=== PATIENT | female | born 1940 | race Caucasian/White ===

== ENCOUNTER 2016-07-28 17:18 | Emergency (ER) | payer MEDICARE ==
--- NOTE | 2016-07-28 18:36 | ED ---
General Adult HPI - General Chief complaint: Weakness Stated complaint: afib Time Seen by Provider: 07/28/16 18:36 Source: patient, RN notes reviewed, old records reviewed Mode of arrival: ambulatory Limitations: no limitations - History of Present Illness Initial comments: This is a 75-year-old female for multiple nonspecific symptoms, revolver no weakness. Patient has no specific heart disease she has suffered from A. fib is on anticoagulation. Patient hasno neurological complaints she has complete of exertional shortness of breath and episodes were heart is fluttering or chest flipping over and she feels very fatigued short of breath and weak. The symptoms are 5-6 weeks now no fevers or travel she also cannot sick contacts no medication changes. Patient at this time is asymptomatic she did feel weak earlier today after she woke up and do some chores - Related Data Home Medications Medication Instructions Recorded Confirmed Multivitamins, Thera [Multivitamin] 1 tab PO DAILY 10/09/15 07/28/16 [place]-3 Fatty Acids/Fish Oil [Fish 1 cap PO DAILY 10/09/15 07/28/16 Oil 1,000 mg Softgel] Selenium 100 mcg PO DAILY 10/09/15 07/28/16 Cholecalciferol [Vitamin D3] 1,000 unit PO DAILY 07/28/16 07/28/16 Diltiazem HCl 60 mg PO TID@0300,0900,1500 07/28/16 07/28/16 Edoxaban Tosylate [Savaysa] 60 mg PO DAILY@1500 07/28/16 07/28/16 Potassium 99 mg PO DAILY 07/28/16 07/28/16 Allergies Allergy/AdvReac Type Severity Reaction Status Date / Time No Known Allergies Allergy Verified 07/28/16 18:58 Review of Systems ROS Statement: Those systems with pertinent positive or pertinent negative responses have been documented in the HPI. ROS Other: All systems not noted in ROS Statement are negative. Past Medical History Past Medical History: Atrial Fibrillation, Hypertension Additional Past Medical History / Comment(s): Pt states she had rapid heart beat yrs ago and has had several tests run but never found out what it was. She also had anemia in the past. History of Any Multi-Drug Resistant Organisms: None Reported Past Surgical History: Heart Catheterization Additional Past Surgical History / Comment(s): Cardiac cath yrs ago-normal, uterine polypectomies-benign, colonoscopy-normal. Past Anesthesia/Blood Transfusion Reactions: No Reported Reaction Additional Past Anesthesia/Blood Transfusion Reaction / Comment(s): Pt has received blood in past without reaction. Past Psychological History: No Psychological Hx Reported Additional Psychological History / Comment(s): Pt resides with her spouse. She is independent. She uses no assistive device. She drives. Smoking Status: Never smoker Past Alcohol Use History: None Reported Past Drug Use History: None Reported - Past Family History Father Family Medical History: Myocardial Infarction ([place]) Additional Family Medical History / Comment(s): Father of a [place] at age 86yrs. Mother Family Medical History: Cancer Additional Family Medical History / Comment(s): Mother had uterine cancer with surgery. She at age 89yrs. General Exam Limitations: no limitations General appearance: alert, in no apparent distress Head exam: Present: atraumatic, normocephalic, normal inspection Eye exam: Present: normal appearance, PERRL, EOMI. Absent: scleral icterus, conjunctival injection, periorbital swelling ENT exam: Present: normal exam, mucous membranes moist Neck exam: Present: normal inspection. Absent: tenderness, meningismus, lymphadenopathy Respiratory exam: Present: normal lung sounds bilaterally. Absent: respiratory distress, wheezes, rales, rhonchi, stridor Cardiovascular Exam: Present: regular rate, normal rhythm, normal heart sounds. Absent: systolic murmur, diastolic murmur, rubs, gallop, clicks GI/Abdominal exam: Present: soft, normal bowel sounds. Absent: distended, tenderness, guarding, rebound, rigid Extremities exam: Present: normal inspection, full ROM, normal capillary refill. Absent: tenderness, pedal edema, joint swelling, calf tenderness Back exam: Present: normal inspection Neurological exam: Present: alert, oriented X3, CN II-XII intact Psychiatric exam: Present: normal affect, normal mood Skin exam: Present: warm, dry, intact, normal color. Absent: rash Course Vital Signs 07/28/16 07/28/16 07/28/16 18:16 19:00 19:33 Temperature 98.2 F 98.1 F Pulse Rate 94 81 82 Respiratory 20 20 18 Rate Blood Pressure 142/78 123/69 132/77 O2 Sat by Pulse 96 95 98 Oximetry 07/28/16 20:21 Temperature Pulse Rate 81 Respiratory 18 Rate Blood Pressure 173/86 O2 Sat by Pulse 98 Oximetry - Reevaluation(s) Reevaluation #1: 07/28/16 20:48 She has no complaints EKG Findings - EKG Comments: EKG Findings:: EKG shows normal sinus rhythm rate of 83, [place] 180, QRS 78, QTC 451 Medical Decision Making - Medical Decision Making 75 female here for reevaluation weakness weakness 5-6 weeks. No specific symptoms, she has had episodic palpitations with exertional shortness of breath. No chest pain. Patient's lab work testing at this time is normal, at this time patient does currently not have any complaints, patient did see her family doctor week ago and is scheduled to see a chairman & co founder while she would like to keep those appointments. Patient will be discharged home - Lab Data Result diagrams: 07/28/16 18:40 07/28/16 18:40 Lab Results 07/28/16 07/28/16 07/28/16 Range/Units 18:40 18:40 18:40 WBC 6.1 (3.8-10.6) k/uL RBC 4.97 (3.80-5.40) m/uL Hgb 15.1 (11.4-16.0) gm/dL Hct 45.8 (34.0-46.0) % MCV 92.2 (80.0-100.0) fL MCH 30.4 (25.0-35.0) pg MCHC 33.0 (31.0-37.0) g/dL RDW 13.4 (11.5-15.5) % Plt Count 261 (150-450) k/uL Neutrophils % 46 % Lymphocytes % 37 % Monocytes % 8 % Eosinophils % 6 % Basophils % 1 % Neutrophils # 2.8 (1.3-7.7) k/uL Lymphocytes # 2.2 (1.0-4.8) k/uL Monocytes # 0.5 (0-1.0) k/uL Eosinophils # 0.3 (0-0.7) k/uL Basophils # 0.0 (0-0.2) k/uL PT (9.0-12.0) sec INR (<1.1) APTT (22.0-30.0) sec Sodium 141 (137-145) mmol/L Potassium 4.1 (3.5-5.1) mmol/L Chloride 105 (98-107) mmol/L Carbon Dioxide 25 (22-30) mmol/L Anion Gap 11 mmol/L BUN 19 H (7-17) mg/dL Creatinine 1.07 H (0.52-1.04) mg/dL Est GFR (MDRD) Af Amer >60 (>60 ml/min/1.73 sqM) Est GFR (MDRD) Non-Af 50 (>60 ml/min/1.73 sqM) Glucose 128 H (74-99) mg/dL Calcium 10.0 (8.4-10.2) mg/dL Phosphorus 3.5 (2.5-4.5) mg/dL Magnesium 2.3 (1.6-2.3) mg/dL Total Bilirubin 0.4 (0.2-1.3) mg/dL AST 20 (14-36) U/L ALT 40 (9-52) U/L Alkaline Phosphatase 102 (38-126) U/L Total Creatine Kinase 41 (30-135) U/L CK-MB (CK-2) 0.5 (0.0-2.4) ng/mL CK-MB (CK-2) Rel Index 1.2 Troponin I <0.012 (0.000-0.034) ng/mL Total Protein 7.1 (6.3-8.2) g/dL Albumin 3.9 (3.5-5.0) g/dL TSH 1.350 (0.465-4.680) mIU/L Urine Color Urine Appearance (Clear) Urine pH (5.0-8.0) Ur Specific [place] (1.001-1.035) Urine Protein (Negative) Urine Glucose (UA) (Negative) Urine Ketones (Negative) Urine Blood (Negative) Urine Nitrate (Negative) Urine Bilirubin (Negative) Urine Urobilinogen (<2.0) mg/dL Ur Leukocyte Esterase (Negative) Urine RBC (0-5) /hpf Urine WBC (0-5) /hpf Ur Squamous Epith Cells (0-4) /hpf Urine Mucus (None) /hpf 07/28/16 07/28/16 Range/Units 18:40 20:00 WBC (3.8-10.6) k/uL RBC (3.80-5.40) m/uL Hgb (11.4-16.0) gm/dL Hct (34.0-46.0) % MCV (80.0-100.0) fL MCH (25.0-35.0) pg MCHC (31.0-37.0) g/dL RDW (11.5-15.5) % Plt Count (150-450) k/uL Neutrophils % % Lymphocytes % % Monocytes % % Eosinophils % % Basophils % % Neutrophils # (1.3-7.7) k/uL Lymphocytes # (1.0-4.8) k/uL Monocytes # (0-1.0) k/uL Eosinophils # (0-0.7) k/uL Basophils # (0-0.2) k/uL PT 13.0 H (9.0-12.0) sec INR 1.3 (<1.1) APTT 28.7 (22.0-30.0) sec Sodium (137-145) mmol/L Potassium (3.5-5.1) mmol/L Chloride (98-107) mmol/L Carbon Dioxide (22-30) mmol/L Anion Gap mmol/L BUN (7-17) mg/dL Creatinine (0.52-1.04) mg/dL Est GFR (MDRD) Af Amer (>60 ml/min/1.73 sqM) Est GFR (MDRD) Non-Af (>60 ml/min/1.73 sqM) Glucose (74-99) mg/dL Calcium (8.4-10.2) mg/dL Phosphorus (2.5-4.5) mg/dL Magnesium (1.6-2.3) mg/dL Total Bilirubin (0.2-1.3) mg/dL AST (14-36) U/L ALT (9-52) U/L Alkaline Phosphatase (38-126) U/L Total Creatine Kinase (30-135) U/L CK-MB (CK-2) (0.0-2.4) ng/mL CK-MB (CK-2) Rel Index Troponin I (0.000-0.034) ng/mL Total Protein (6.3-8.2) g/dL Albumin (3.5-5.0) g/dL TSH (0.465-4.680) mIU/L Urine Color Yellow Urine Appearance Clear (Clear) Urine pH 6.0 (5.0-8.0) Ur Specific [place] 1.018 (1.001-1.035) Urine Protein Negative (Negative) Urine Glucose (UA) Negative (Negative) Urine Ketones Negative (Negative) Urine Blood Trace H (Negative) Urine Nitrate Negative (Negative) Urine Bilirubin Negative (Negative) Urine Urobilinogen <2.0 (<2.0) mg/dL Ur Leukocyte Esterase Small H (Negative) Urine RBC 3 (0-5) /hpf Urine WBC 6 H (0-5) /hpf Ur Squamous Epith Cells 4 (0-4) /hpf Urine Mucus Occasional H (None) /hpf - Radiology Data Radiology results: report reviewed (Chest x-ray is negative for acute disease), image reviewed Disposition Clinical Impression: Weakness Disposition: HOME SELF-CARE Condition: Good Instructions: Weakness (ED) Referrals: Lawrence Marinelli DO [Primary Care Provider] - 1-2 days
[2016-07-28 19:08] LABS: Basophils % (A) 1 %; CH 31.1; CHCM 33.9; Eosinophils # (A) 0.3 k/uL (0-0.7); Eosinophils % (A) 6 %; HCT 45.8 % (34.0-46.0); HDW 2.39; HGB 15.1 gm/dL (11.4-16.0); Luc # (Auto) 0.24; Luc % (Auto) 4; Lymphocytes # (A) 2.2 k/uL (1.0-4.8); Lymphocytes % (A) 37 %; MCH 30.4 pg (25.0-35.0); MCV 92.2 fL (80.0-100.0); Mean Platelet Volume 6.9; Monocytes # (A) 0.5 k/uL (0-1.0); Monocytes % (A) 8 %; Neutrophils # (A) 2.8 k/uL (1.3-7.7); Neutrophils % (A) 46 %; RBC 4.97 m/uL (3.80-5.40); RDW 13.4 % (11.5-15.5); WBC 6.1 k/uL (3.8-10.6); WBC (Perox) 6.03
--- NOTE | 2016-07-28 19:16 | XR ---
EXAMINATION TYPE: XR chest 2V DATE OF EXAM: 07/28/2016 7:08 PM COMPARISON: 10/09/2015 HISTORY: Heart fluttering TECHNIQUE: Frontal and lateral views of the chest are obtained. FINDINGS: Heart and mediastinum are normal. Lungs are clear. Diaphragm is normal. There are chest le ads. Bony thorax is intact. IMPRESSION: Normal chest. No change.
[2016-07-28 19:18] LABS: ALT 40 U/L (9-52); AST 20 U/L (14-36); Alkaline Phosphatase 102 U/L (38-126); Anion Gap 11 mmol/L; Blood Urea Nitrogen 19 mg/dL (7-17); Carbon Dioxide 25 mmol/L (22-30); Chloride 105 mmol/L (98-107); Creatine Kinase 41 U/L (30-135); Glucose 128 mg/dL (74-99); INR 1.3 (<1.1); Magnesium 2.3 mg/dL (1.6-2.3); Non-African American GFR(MDRD) 50 (>60 ml/min/1.73 sqM); Partial Thromboplastin Time 28.7 sec (22.0-30.0); Phosphorous 3.5 mg/dL (2.5-4.5); Potassium 4.1 mmol/L (3.5-5.1); Sodium 141 mmol/L (137-145); Total Bilirubin 0.4 mg/dL (0.2-1.3); Total Protein 7.1 g/dL (6.3-8.2)
[2016-07-28 19:29] LABS: Creatine Kinase MB 0.5 ng/mL (0.0-2.4); Troponin I <0.012 ng/mL (0.000-0.034)
[2016-07-28 19:36] VITALS: RESP 18
[2016-07-28 20:33] LABS: Appearance,Urine Clear (Clear); Bilirubin,Urine Negative (Negative); Glucose,Urine (UA) Negative (Negative); Ketones,Urine Negative (Negative); Leukocyte Esterase,Urine Small (Negative); Mucus,Urine Occasional /hpf; Nitrite,Urine Negative (Negative); Particle Count 2931; Protein,Urine Negative (Negative); RBC,Urine 3 /hpf (0-5); Specific Gravity,Urine 1.018 (1.001-1.035); Squamous Epithelial Cell,Urine 4 /hpf (0-4); UA Billing (MACRO vs. MICRO) MICRO; Urobilinogen,Urine <2.0 mg/dL (<2.0); WBC,Urine 6 /hpf (0-5)
[2016-07-28 21:40] VITALS: BP 166/78; PULSE 87; TEMP 98.9
== END 2016-07-28 21:03 | disposition home or self-care (01) ==
LOC: EC 17:18
DX: R53.1 Weakness (principal); I48.91 Unspecified atrial fibrillation; I10 Essential (primary) hypertension; Z98.61 Coronary angioplasty status; Z79.899 Other long term (current) drug therapy; Z79.01 Long term (current) use of anticoagulants
CPT/HCPCS: 36415; 71020; 80053; 81001; 82550; 82553; 83735; 84100; 84443; 84484; 85025; 85610; 85730; 87086; 93005; 99285

== ENCOUNTER 2016-12-16 09:21 | Inpatient (IN) | payer MEDICARE ==
[2016-12-16] MEDS ORDERED: ONDANSETRON 4 MG/2 ML VIAL IVP STA (10:03)
[2016-12-16] MEDS ORDERED: ACETAMINOPHEN TAB 500 MG TAB PO STA (10:03)
[2016-12-16] MEDS ORDERED: RX INFO: IV CONTRAST WAS GIVEN 1 EACH MISC MISCELLANE PRN (10:03)
--- NOTE | 2016-12-16 10:05 | ED ---
Abdominal Pain HPI - General Chief Complaint: Abdominal Pain Stated Complaint: abdominal pain/nausea Time Seen by Provider: 12/16/16 09:55 Source: patient, RN notes reviewed, old records reviewed Mode of arrival: wheelchair Limitations: no limitations - History of Present Illness Initial Comments: 76-year-old female present the ED chief complaint of fever and abdominal pain for the past 2 days. Patient reports that she has mainly diffuse abdominal pain but originate in the right and left upper quadrants. Patient states she's vomited but denies any diarrhea. She normally is constipated. Patient states that she has not had a bowel movement since 2 days ago. She states that she's had colonoscopies before however they've made no mention of diverticulitis. Patient denies any other significant abdominal surgical history. Patient last ate or drank yesterday evening. - Related Data Home Medications Medication Instructions Recorded Confirmed Multivitamins, Thera [Multivitamin 1 tab PO DAILY 10/09/15 12/16/16 (formulary)] [place]-3 Fatty Acids/Fish Oil [Fish 1 cap PO DAILY 10/09/15 12/16/16 Oil 1,000 mg Softgel] Selenium 100 mcg PO DAILY 10/09/15 12/16/16 Cholecalciferol [Vitamin D3] 1,000 unit PO DAILY 07/28/16 12/16/16 Diltiazem HCl 60 mg PO BID@0900,2100 07/28/16 12/16/16 Edoxaban Tosylate [Savaysa] 60 mg PO DAILY@1500 07/28/16 12/16/16 Potassium 99 mg PO DAILY 07/28/16 12/16/16 Atenolol 25 mg PO DAILY@0600 12/16/16 12/16/16 Allergies Allergy/AdvReac Type Severity Reaction Status Date / Time No Known Allergies Allergy Verified 12/16/16 09:48 Review of Systems ROS Statement: Those systems with pertinent positive or pertinent negative responses have been documented in the HPI. ROS Other: All systems not noted in ROS Statement are negative. Past Medical History Past Medical History: Atrial Fibrillation, Hypertension Additional Past Medical History / Comment(s): Pt states she had rapid heart beat yrs ago and has had several tests run but never found out what it was. She also had anemia in the past. History of Any Multi-Drug Resistant Organisms: None Reported Past Surgical History: Heart Catheterization Additional Past Surgical History / Comment(s): Cardiac cath yrs ago-normal, uterine polypectomies-benign, colonoscopy-normal. Past Anesthesia/Blood Transfusion Reactions: No Reported Reaction Additional Past Anesthesia/Blood Transfusion Reaction / Comment(s): Pt has received blood in past without reaction. Past Psychological History: No Psychological Hx Reported Smoking Status: Never smoker Past Alcohol Use History: None Reported Past Drug Use History: None Reported - Past Family History Father Family Medical History: Myocardial Infarction ([place]) Additional Family Medical History / Comment(s): Father of a [place] at age 86yrs. Mother Family Medical History: Cancer Additional Family Medical History / Comment(s): Mother had uterine cancer with surgery. She at age 89yrs. General Exam - General Exam Comments Initial Comments: 76-year-old female. No acute distress. Limitations: no limitations General appearance: alert, in no apparent distress Head exam: Present: atraumatic, normocephalic, normal inspection Eye exam: Present: normal appearance, PERRL, EOMI. Absent: scleral icterus, conjunctival injection, periorbital swelling ENT exam: Present: normal exam, mucous membranes moist Neck exam: Present: normal inspection. Absent: tenderness, meningismus, lymphadenopathy Respiratory exam: Present: normal lung sounds bilaterally. Absent: respiratory distress, wheezes, rales, rhonchi, stridor Cardiovascular Exam: Present: regular rate, normal rhythm, normal heart sounds. Absent: systolic murmur, diastolic murmur, rubs, gallop, clicks GI/Abdominal exam: Present: soft, tenderness (Right upper and left upper quadrant tenderness.), normal bowel sounds. Absent: distended, guarding, rebound, rigid Extremities exam: Present: normal inspection, full ROM, normal capillary refill. Absent: tenderness, pedal edema, joint swelling, calf tenderness Back exam: Present: normal inspection Neurological exam: Present: alert, oriented X3, CN II-XII intact Psychiatric exam: Present: normal affect, normal mood Skin exam: Present: warm, dry, intact, normal color. Absent: rash Course Vital Signs 12/16/16 12/16/16 12/16/16 09:23 11:54 12:44 Temperature 100.8 F H 98.8 F 100.1 F H Pulse Rate 60 58 L 56 L Respiratory 17 18 19 Rate Blood Pressure 165/74 108/59 125/62 O2 Sat by Pulse 95 90 L 94 L Oximetry Medical Decision Making - Medical Decision Making 76-year-old female present the ED chief complaint of fever and abdominal pain for the past 2 days. Patient reports that she has mainly diffuse abdominal pain but originate in the right and left upper quadrants. Patient states she's vomited but denies any diarrhea. She normally is constipated. CT abdomen and pelvis shows acute cholecystitis. Patient started on IV fluids and Zosyn. Patient's case was discussed with Dr. Gee. He did call Dr. Santiago. We will admit the patient to Dr. Serna but consult cardiology and medicine. - Lab Data Result diagrams: 12/16/16 10:30 12/16/16 10:30 Lab Results 12/16/16 12/16/16 12/16/16 Range/Units 10:30 10:30 10:30 WBC 18.3 H (3.8-10.6) k/uL RBC 5.21 (3.80-5.40) m/uL Hgb 16.1 H (11.4-16.0) gm/dL Hct 47.4 H (34.0-46.0) % MCV 90.9 (80.0-100.0) fL MCH 30.9 (25.0-35.0) pg MCHC 34.0 (31.0-37.0) g/dL RDW 13.4 (11.5-15.5) % Plt Count 253 (150-450) k/uL Neutrophils % 80 % Lymphocytes % 12 % Monocytes % 6 % Eosinophils % 0 % Basophils % 0 % Neutrophils # 14.7 H (1.3-7.7) k/uL Lymphocytes # 2.2 (1.0-4.8) k/uL Monocytes # 1.1 H (0-1.0) k/uL Eosinophils # 0.0 (0-0.7) k/uL Basophils # 0.0 (0-0.2) k/uL PT 11.2 (9.0-12.0) sec INR 1.1 (<1.1) APTT 24.1 (22.0-30.0) sec Sodium 137 (137-145) mmol/L Potassium 4.3 (3.5-5.1) mmol/L Chloride 103 (98-107) mmol/L Carbon Dioxide 25 (22-30) mmol/L Anion Gap 9 mmol/L BUN 14 (7-17) mg/dL Creatinine 0.54 (0.52-1.04) mg/dL Est GFR (MDRD) Af Amer >60 (>60 ml/min/1.73 sqM) Est GFR (MDRD) Non-Af >60 (>60 ml/min/1.73 sqM) Glucose 125 H (74-99) mg/dL Plasma Lactic Acid Soham (0.7-2.0) mmol/L Calcium 9.8 (8.4-10.2) mg/dL Total Bilirubin 1.2 (0.2-1.3) mg/dL AST 25 (14-36) U/L ALT 25 (9-52) U/L Alkaline Phosphatase 84 (38-126) U/L Total Protein 7.2 (6.3-8.2) g/dL Albumin 4.2 (3.5-5.0) g/dL Amylase <30 L (30-110) U/L Lipase 38 (23-300) U/L Urine Color Urine Appearance (Clear) Urine pH (5.0-8.0) Ur Specific [place] (1.001-1.035) Urine Protein (Negative) Urine Glucose (UA) (Negative) Urine Ketones (Negative) Urine Blood (Negative) Urine Nitrite (Negative) Urine Bilirubin (Negative) Urine Urobilinogen (<2.0) mg/dL Ur Leukocyte Esterase (Negative) Urine WBC (0-5) /hpf Ur Squamous Epith Cells (0-4) /hpf Urine Bacteria (None) /hpf Urine Mucus (None) /hpf 12/16/16 12/16/16 Range/Units 10:45 10:46 WBC (3.8-10.6) k/uL RBC (3.80-5.40) m/uL Hgb (11.4-16.0) gm/dL Hct (34.0-46.0) % MCV (80.0-100.0) fL MCH (25.0-35.0) pg MCHC (31.0-37.0) g/dL RDW (11.5-15.5) % Plt Count (150-450) k/uL Neutrophils % % Lymphocytes % % Monocytes % % Eosinophils % % Basophils % % Neutrophils # (1.3-7.7) k/uL Lymphocytes # (1.0-4.8) k/uL Monocytes # (0-1.0) k/uL Eosinophils # (0-0.7) k/uL Basophils # (0-0.2) k/uL PT (9.0-12.0) sec INR (<1.1) APTT (22.0-30.0) sec Sodium (137-145) mmol/L Potassium (3.5-5.1) mmol/L Chloride (98-107) mmol/L Carbon Dioxide (22-30) mmol/L Anion Gap mmol/L BUN (7-17) mg/dL Creatinine (0.52-1.04) mg/dL Est GFR (MDRD) Af Amer (>60 ml/min/1.73 sqM) Est GFR (MDRD) Non-Af (>60 ml/min/1.73 sqM) Glucose (74-99) mg/dL Plasma Lactic Acid Soham 1.7 (0.7-2.0) mmol/L Calcium (8.4-10.2) mg/dL Total Bilirubin (0.2-1.3) mg/dL AST (14-36) U/L ALT (9-52) U/L Alkaline Phosphatase (38-126) U/L Total Protein (6.3-8.2) g/dL Albumin (3.5-5.0) g/dL Amylase (30-110) U/L Lipase (23-300) U/L Urine Color Yellow Urine Appearance Cloudy H (Clear) Urine pH 7.0 (5.0-8.0) Ur Specific [place] 1.016 (1.001-1.035) Urine Protein Trace H (Negative) Urine Glucose (UA) Negative (Negative) Urine Ketones Negative (Negative) Urine Blood Negative (Negative) Urine Nitrite Negative (Negative) Urine Bilirubin Negative (Negative) Urine Urobilinogen 2.0 (<2.0) mg/dL Ur Leukocyte Esterase Negative (Negative) Urine WBC 1 (0-5) /hpf Ur Squamous Epith Cells 7 H (0-4) /hpf Urine Bacteria Rare H (None) /hpf Urine Mucus Occasional H (None) /hpf 12/16/16 12:57 EKG shows sinus break hernia. Ventricular rate of 54 bpm. VA interval 184 ms. QRS duration 82 ms. QT QTc is 456/432 ms. No nodes of ST elevation or T- wave inversion. Nojoint ventricular arrhythmias. - Radiology Data Radiology results: report reviewed CT abdomen and pelvis shows evidence of acute cholecystitis. Disposition Clinical Impression: Acute cholecystitis Disposition: ADMITTED IP TO THIS HOSP Condition: Good Referrals: Lawrence Marinelli DO [Primary Care Provider] - 1-2 days Time of Disposition: 12:10
[2016-12-16] MEDS ORDERED: HYDROmorphone 1 MG/ML 1 ML SYRINGE IVP STA (10:34)
[2016-12-16 10:53] LABS: ALT 25 U/L (9-52); AST 25 U/L (14-36); Alkaline Phosphatase 84 U/L (38-126); Amylase <30 U/L (30-110); Anion Gap 9 mmol/L; Blood Urea Nitrogen 14 mg/dL (7-17); Calcium 9.8 mg/dL (8.4-10.2); Carbon Dioxide 25 mmol/L (22-30); Chloride 103 mmol/L (98-107); Glucose 125 mg/dL (74-99); INR 1.1 (<1.1); Non-African American GFR(MDRD) >60 (>60 ml/min/1.73 sqM); Partial Thromboplastin Time 24.1 sec (22.0-30.0); Potassium 4.3 mmol/L (3.5-5.1); Prothrombin Time 11.2 sec (9.0-12.0); Sodium 137 mmol/L (137-145); Total Bilirubin 1.2 mg/dL (0.2-1.3); Total Protein 7.2 g/dL (6.3-8.2)
[2016-12-16 10:55] LABS: Basophils % (A) 0 %; CH 31.2; CHCM 34.4; Eosinophils % (A) 0 %; HCT 47.4 % (34.0-46.0); HGB 16.1 gm/dL (11.4-16.0); Luc # (Auto) 0.25; Luc % (Auto) 1; Lymphocytes # (A) 2.2 k/uL (1.0-4.8); Lymphocytes % (A) 12 %; MCH 30.9 pg (25.0-35.0); MCV 90.9 fL (80.0-100.0); Mean Platelet Volume 7.4; Monocytes # (A) 1.1 k/uL (0-1.0); Monocytes % (A) 6 %; Neutrophils # (A) 14.7 k/uL (1.3-7.7); Neutrophils % (A) 80 %; RBC 5.21 m/uL (3.80-5.40); RDW 13.4 % (11.5-15.5); WBC 18.3 k/uL (3.8-10.6); WBC (Perox) 17.98
[2016-12-16 10:57] LABS: Appearance,Urine Cloudy (Clear); Bacteria,Urine Rare /hpf; Bilirubin,Urine Negative (Negative); Glucose,Urine (UA) Negative (Negative); Ketones,Urine Negative (Negative); Leukocyte Esterase,Urine Negative (Negative); Mucus,Urine Occasional /hpf; Nitrite,Urine Negative (Negative); Particle Count 4756; Protein,Urine Trace (Negative); Specific Gravity,Urine 1.016 (1.001-1.035); Squamous Epithelial Cell,Urine 7 /hpf (0-4); UA Billing (MACRO vs. MICRO) MICRO; WBC,Urine 1 /hpf (0-5)
--- NOTE | 2016-12-16 11:57 | CT ---
EXAMINATION TYPE: CT abdomen pelvis w con DATE OF EXAM: 12/16/2016 COMPARISON: 10/04/2012 HISTORY: Upper abdominal pain CT DLP: 1749 mGycm CONTRAST: CT scan of the abdomen and pelvis is performed with Oral Contrast and with IV Contrast, patient injec ney with 100 mL of Omnipaque 300. FINDINGS: LUNG BASES-: No visible nodule. No infiltrate. LIVER/GB: Numerous gallstones noted with gallbladder wall thickening and pericholecystic fluid. Acute cholecystitis is not excluded. The common bile duct appears to be within normal limits. There is mil d hepatic steatosis. No space-occupying hepatic lesion is seen.. PANCREAS: No inflammation. No distinct mass. SPLEEN: No splenic enlargement. No lesion seen. ADRENALS: No nodule. No thickening. KIDNEYS/BLADDER: No hydronephrosis. No nephrolithiasis. Simple appearing cyst upper pole right kid muriel measuring 1.2 cm. Urinary bladder grossly unremarkable. BOWEL: Normal appendix. Normal bowel caliber. No inflammation. Small sliding-type hiatal hernia. GENITAL ORGANS: Left ovarian cystic lesion is again noted and currently measures 7.6 x 6.5 cm versus 6.5 x 5.2 previously. Multiple calcified uterine leiomyomas are also noted. LYMPH NODES: No greater than 1cm abdominal or pelvic lymph nodes are appreciated. AORTA: No significant abnormality. OSSEOUS STRUCTURES: Severe degenerative change lumbar spine. OTHER: No significant additional abnormality is seen. IMPRESSION: 1. Findings suggest acute cholecystitis. 2 increase in size in left ovarian cystic mass. 3. Mild fatty hepatic infiltration. 4. Small sliding-type hiatal hernia.
[2016-12-16] MEDS ORDERED: PIPERACILLIN-TAZOBACTAM 3.375 GM in DEXTROSE/WATER 1 50ML.BAG IVPB STA (12:04)
[2016-12-16] MEDS ORDERED: SODIUM CHLORIDE 0.9% 1,000 ML IV ONE (12:04)
[2016-12-16] MEDS ORDERED: ACETAMINOPHEN TAB 325 MG TAB PO PRN (12:11)
[2016-12-16] MEDS ORDERED: NALOXONE 0.4 MG/ML 1 ML VIAL IV PRN (12:11)
[2016-12-16] MEDS ORDERED: ONDANSETRON 4 MG/2 ML VIAL IVP PRN ×2 (12:11→15:10)
[2016-12-16] MEDS ORDERED: IBUPROFEN 400 MG TAB PO PRN (12:11)
[2016-12-16] MEDS ORDERED: HYDROmorphone 1 MG/ML 1 ML SYRINGE IV PRN (12:11)
[2016-12-16] MEDS: SODIUM CHLORIDE 0.9% 1,000 ML IV SCH (12:28)
--- NOTE | 2016-12-16 13:44 | US ---
EXAMINATION TYPE: US abdomen limited DATE OF EXAM: 12/16/2016 COMPARISON: CT 12/16/2016 CLINICAL HISTORY: Pain. EXAM MEASUREMENTS: Liver Length: 15.8 cm Gallbladder Wall: 1.3 cm CBD: 0.5 cm Right Kidney: 10.3 x 5.0 xv 6.69 cm Pancreas: appears normal as seen Liver: Heterogeneous, best imaging intercostal due to liver at breast level Gallbladder: Thickened ( 1.3 cm) wall with packed stones Evidence for sonographic Phillips's sign: CBD: wnl Right Kidney: No hydronephrosis or masses seen IMPRESSION: 1. Hepatic steatosis versus diffuse hepatocellular disease. 2. Gallbladder wall thickening with numerous stones. Acute cholecystitis not excluded.
--- NOTE | 2016-12-16 13:54 | XR ---
EXAMINATION TYPE: XR chest 1V DATE OF EXAM: 12/16/2016 HISTORY: Shortness of breath. COMPARISON: July 28, 2016 TECHNIQUE: Single view of the chest is submitted. FINDINGS: Demonstrated are scattered senescent parenchymal change. There is no evidence for focal infiltrate. The heart is enlarged. Hilar and mediastinal structures are within normal limits. Degenerative changes are seen of the dorsal spine. IMPRESSION: 1. Chronic changes without evidence for acute pulmonary disease.
[2016-12-16] MEDS ORDERED: EDOXABAN TOSYLATE 60 MG TABLET PO SCH (15:00)
--- NOTE | 2016-12-16 15:08 | P.GSHP ---
History of Present Illness H&P Date: 12/16/16 Chief Complaint: Abdominal pain 76-year-old was admitted to the emergency room on the day of admission with a chief complaint of developing abdominal pain right upper quadrant radiating to the back with nausea vomiting fever chills inability to keep fluids down onset December 14. Patient states symptoms have been ongoing and with any movement symptoms seem to be worse. Patient stated that "I just felt terrible was the worst pain ever experienced. Patient stated on December 14 after eating sausage vomited and developed pain in the right upper quadrant. Patient states not had prior incident. In the emergency room the temp was 100.8. Heart rate was in the 60s blood pressure 165/74 with a white count of 18.3. CAT scan of the abdomen and pelvis was obtained in the emergency room it showed acute cholecystitis. Patient does have a past medical history for paroxysmal atrial fibrillation is on anticoagulation savaysa. Patient stated that she did take savaysa yesterday at 3:00 none today. Patient currently is denying chest pain dizziness lightheadedness. The 12-lead EKG in the emergency room sinus bradycardia heart rate in the patient states that she did have a stress test done in September 2015 with no acute findings reviewing medical records show an echocardiogram was obtained in September 2015 it showed left ventricular systolic function normal with an EF between 55 and 60% no valvular heart disease. Patient currently is resting comfortably in the emergency room states pain medication is effective for pain control past surgical history colonoscopy greater than 5 years was told was unremarkable, heart catheterization years ago was told it was normal, fibroid tumors with hysterectomy otherwise unremarkable. Past medical history hypertension, paroxysmal atrial fibrillation - Review of Systems Comment: Essentially unremarkable except as mentioned in the present illness Past Medical History Past Medical History: Atrial Fibrillation, Hypertension Additional Past Medical History / Comment(s): Pt states she had rapid heart beat yrs ago and has had several tests run but never found out what it was. She also had anemia in the past. History of Any Multi-Drug Resistant Organisms: None Reported Past Surgical History: Heart Catheterization Additional Past Surgical History / Comment(s): Cardiac cath yrs ago-normal, uterine polypectomies-benign, colonoscopy-normal. Past Anesthesia/Blood Transfusion Reactions: No Reported Reaction Additional Past Anesthesia/Blood Transfusion Reaction / Comment(s): Pt has received blood in past without reaction. Smoking Status: Never smoker - Past Family History Father Family Medical History: Myocardial Infarction ([place]) Additional Family Medical History / Comment(s): Father of a [place] at age 86yrs. Mother Family Medical History: Cancer Additional Family Medical History / Comment(s): Mother had uterine cancer with surgery. She at age 89yrs. Medications and Allergies Home Medications Medication Instructions Recorded Confirmed Type Multivitamins, Thera [Multivitamin 1 tab PO DAILY 10/09/15 12/16/16 History (formulary)] [place]-3 Fatty Acids/Fish Oil [Fish 1 cap PO DAILY 10/09/15 12/16/16 History Oil 1,000 mg Softgel] Selenium 100 mcg PO DAILY 10/09/15 12/16/16 History Cholecalciferol [Vitamin D3] 1,000 unit PO DAILY 07/28/16 12/16/16 History Diltiazem HCl 60 mg PO BID@0900,2100 07/28/16 12/16/16 History Edoxaban Tosylate [Savaysa] 60 mg PO DAILY@1500 07/28/16 12/16/16 History Potassium 99 mg PO DAILY 07/28/16 12/16/16 History Atenolol 25 mg PO DAILY@0600 12/16/16 12/16/16 History Allergies Allergy/AdvReac Type Severity Reaction Status Date / Time No Known Allergies Allergy Verified 12/16/16 09:48 Surgical - Exam Vital Signs Temp Pulse Resp BP Pulse Ox 100.8 F H 60 17 165/74 95 12/16/16 09:23 12/16/16 09:23 12/16/16 09:23 12/16/16 09:23 12/16/16 09:23 GENERAL APPEARANCE: 76-year-old female patient is alert, oriented, in no acute distress. Pleasant cooperative VITAL SIGNS: Reviewed HEENT: Head is normocephalic and atraumatic. Pupils are equal and reactive. The nares are patent. Oropharynx is clear without lesions. NECK: Supple without lymphadenopathy. Traches midline. HEART: S1, S2. Regular rate and rhythm. Currently denying chest pain no murmur noted monitor sinus bradycardia heart rate in the 50s LUNGS: No crackles or wheezes are heard. Adequate air movement bilaterally ABDOMEN: Soft, tenderness right upper quadrant, nondistended with good bowel sounds. No peritoneal signs. No palpable organomegaly or masses. EXTREMITIES: Normal skin color and turgor. No cyanosis, rash, ulceration, clubbing or edema. Radial pedal pulses are 2/4 bilaterally. NEUROLOGICAL: No focal deficits. Strength and sensation are grossly intact. Results - Labs 12/16/16 10:30 12/16/16 10:30 Abnormal Lab Results - Last 24 Hours (Table) 12/16/16 12/16/16 12/16/16 Range/Units 10:30 10:30 10:45 WBC 18.3 H (3.8-10.6) k/uL Hgb 16.1 H (11.4-16.0) gm/dL Hct 47.4 H (34.0-46.0) % Neutrophils # 14.7 H (1.3-7.7) k/uL Monocytes # 1.1 H (0-1.0) k/uL Glucose 125 H (74-99) mg/dL Amylase <30 L (30-110) U/L Urine Appearance Cloudy H (Clear) Urine Protein Trace H (Negative) Ur Squamous Epith Cells 7 H (0-4) /hpf Urine Bacteria Rare H (None) /hpf Urine Mucus Occasional H (None) /hpf Diabetes panel 12/16/16 Range/Units 10:30 Sodium 137 (137-145) mmol/L Potassium 4.3 (3.5-5.1) mmol/L Chloride 103 (98-107) mmol/L Carbon Dioxide 25 (22-30) mmol/L BUN 14 (7-17) mg/dL Creatinine 0.54 (0.52-1.04) mg/dL Glucose 125 H (74-99) mg/dL Calcium 9.8 (8.4-10.2) mg/dL AST 25 (14-36) U/L ALT 25 (9-52) U/L Alkaline Phosphatase 84 (38-126) U/L Total Protein 7.2 (6.3-8.2) g/dL Albumin 4.2 (3.5-5.0) g/dL Calcium panel 12/16/16 Range/Units 10:30 Calcium 9.8 (8.4-10.2) mg/dL Albumin 4.2 (3.5-5.0) g/dL Pituitary panel 12/16/16 Range/Units 10:30 Sodium 137 (137-145) mmol/L Potassium 4.3 (3.5-5.1) mmol/L Chloride 103 (98-107) mmol/L Carbon Dioxide 25 (22-30) mmol/L BUN 14 (7-17) mg/dL Creatinine 0.54 (0.52-1.04) mg/dL Glucose 125 H (74-99) mg/dL Calcium 9.8 (8.4-10.2) mg/dL Adrenal panel 12/16/16 Range/Units 10:30 Sodium 137 (137-145) mmol/L Potassium 4.3 (3.5-5.1) mmol/L Chloride 103 (98-107) mmol/L Carbon Dioxide 25 (22-30) mmol/L BUN 14 (7-17) mg/dL Creatinine 0.54 (0.52-1.04) mg/dL Glucose 125 H (74-99) mg/dL Calcium 9.8 (8.4-10.2) mg/dL Total Bilirubin 1.2 (0.2-1.3) mg/dL AST 25 (14-36) U/L ALT 25 (9-52) U/L Alkaline Phosphatase 84 (38-126) U/L Total Protein 7.2 (6.3-8.2) g/dL Albumin 4.2 (3.5-5.0) g/dL Assessment and Plan Plan: Impression Present on admission febrile leukocytosis hypotensive suspect early sepsis suspect due to an acute cholecystitis Paroxysmal atrial fibrillation on anticoagulation savaysa Hypertension Present on admission nausea vomiting right and left upper quadrant pain suspect due to acute cholecystitis Present on admission nausea vomiting poor oral intake with clinical dehydration Plan Hold the fish oil [id number] Hold savaysa Pain control Consult cardiology service Consult medicine service for medical management IV hydration as ordered DVT and GI prophylaxis home meds as appropriate Repeat labs in the morning Further recommendations pending The above impression and plan of care have been discussed and directed by signing physician. Page Randhawa nurse practitioner acting as scribe for signing physician.
[2016-12-16] MEDS: PIPERACILLIN-TAZOBACTAM 3.375 GM in DEXTROSE/WATER 1 50ML.BAG IVPB SCH (19:34)
[2016-12-16] MEDS: HEPARIN SODIUM,PORCINE 5,000 UNIT/ML 1 ML VIAL SQ SCH (21:37)
[2016-12-16] MEDS: DILTIAZEM ORAL 60 MG TAB PO SCH (21:37)
[2016-12-17] MEDS: SODIUM CHLORIDE 0.9% 1,000 ML IV SCH ×3 (00:35→12:59)
[2016-12-17] MEDS: PIPERACILLIN-TAZOBACTAM 3.375 GM in DEXTROSE/WATER 1 50ML.BAG IVPB SCH ×3 (03:30→21:45)
[2016-12-17] MEDS: ATENOLOL 25 MG TAB PO SCH (06:11)
[2016-12-17 07:41] LABS: Basophils % (A) 0 %; CH 30.9; CHCM 33.3; Eosinophils # (A) 0.1 k/uL (0-0.7); Eosinophils % (A) 0 %; HCT 42.8 % (34.0-46.0); HDW 2.31; HGB 14.2 gm/dL (11.4-16.0); Luc # (Auto) 0.33; Luc % (Auto) 2; Lymphocytes # (A) 1.7 k/uL (1.0-4.8); Lymphocytes % (A) 13 %; MCH 30.9 pg (25.0-35.0); MCHC 33.2 g/dL (31.0-37.0); MCV 93.2 fL (80.0-100.0); Monocytes # (A) 0.8 k/uL (0-1.0); Monocytes % (A) 6 %; Neutrophils # (A) 10.6 k/uL (1.3-7.7); Neutrophils % (A) 78 %; RBC 4.59 m/uL (3.80-5.40); RDW 13.4 % (11.5-15.5); WBC 13.6 k/uL (3.8-10.6); WBC (Perox) 13.91
[2016-12-17 07:47] LABS: INR 1.3 (<1.1); Prothrombin Time 12.4 sec (9.0-12.0)
[2016-12-17 07:51] LABS: ALT 51 U/L (9-52); AST 36 U/L (14-36); Alkaline Phosphatase 84 U/L (38-126); Anion Gap 7 mmol/L; Blood Urea Nitrogen 12 mg/dL (7-17); Calcium 8.7 mg/dL (8.4-10.2); Carbon Dioxide 25 mmol/L (22-30); Chloride 106 mmol/L (98-107); Glucose 115 mg/dL (74-99); Non-African American GFR(MDRD) >60 (>60 ml/min/1.73 sqM); Sodium 138 mmol/L (137-145); Total Bilirubin 1.8 mg/dL (0.2-1.3)
[2016-12-17] MEDS: POTASSIUM CHLORIDE ORAL LIQUID 40 MEQ/30 ML CUP PO SCH (08:41)
[2016-12-17] MEDS: DILTIAZEM ORAL 60 MG TAB PO SCH ×2 (08:42→21:50)
[2016-12-17] MEDS: HEPARIN SODIUM,PORCINE 5,000 UNIT/ML 1 ML VIAL SQ SCH ×2 (08:43→21:50)
[2016-12-17] MEDS ORDERED: NON-FORMULARY DRUG (Selenium [Selenium] 100 MCG) PO SCH (09:00)
--- NOTE | 2016-12-17 10:03 | P.PN ---
Subjective 76-year-old female being seen and examined this morning. Just received IV dilaudid for pain control sedated but arousable to verbal stimuli patient states pain medication does take away the abdominal discomfort she been experiencing. There's been no further reports of nausea vomiting. Patient's anticoagulation savaysa is currently on hold. Patient currently is denying any chest pain shortness of breath or nausea vomiting. Patients being followed by surgical service for acute abdominal pain right upper quadrant suspect due to acute cholecystitis as evident on a CAT scan of the abdomen pelvis which was obtained in the emergency room on the december. The white count is 13.6 this morning down from 18.3. Other labs were reviewed all within normal limits temp this morning is 99.8 Objective - Vital Signs Vital signs: Vital Signs Temp 99.8 F H 12/17/16 07:00 Pulse 70 12/17/16 07:00 Resp 18 12/17/16 07:00 BP 140/72 12/17/16 07:00 Pulse Ox 92 L 12/17/16 07:00 Intake & Output 12/16/16 12/17/16 12/17/16 18:59 06:59 18:59 Intake Total 1300 Balance 1300 Weight 98.883 kg Intake: Intake, IV Titration 1300 Amount Piperacillin-Tazobactam 3 100 .375 gm In Dextrose/Water 1 50ml.bag @ 12.5 mls/hr IVPB Q8H [facility] Rx#: [id number] Sodium Chloride 0.9% 1, 1200 000 ml @ 100 mls/hr IV . Q10H [facility] Rx#:[id number] - Exam Physical exam 76-year-old female resting comfortably in bed appears in no acute distress oriented 3 Lungs essentially clear adequate air movement on room air Heart S1-S2 audible regular Abdomen soft states pain medication effective for pain control has been experiencing right upper quadrant discomfort not distended bowel tones present reports a nausea sensation improving Extremities no edema noted - Labs CBC & Chem 7: 12/17/16 07:20 12/17/16 07:20 Labs: Abnormal Lab Results - Last 24 Hours (Table) 12/16/16 12/16/16 12/16/16 Range/Units 10:30 10:30 10:45 WBC 18.3 H (3.8-10.6) k/uL Hgb 16.1 H (11.4-16.0) gm/dL Hct 47.4 H (34.0-46.0) % Neutrophils # 14.7 H (1.3-7.7) k/uL Monocytes # 1.1 H (0-1.0) k/uL PT (9.0-12.0) sec Glucose 125 H (74-99) mg/dL Total Bilirubin (0.2-1.3) mg/dL Total Protein (6.3-8.2) g/dL Albumin (3.5-5.0) g/dL Amylase <30 L (30-110) U/L Urine Appearance Cloudy H (Clear) Urine Protein Trace H (Negative) Ur Squamous Epith Cells 7 H (0-4) /hpf Urine Bacteria Rare H (None) /hpf Urine Mucus Occasional H (None) /hpf 12/17/16 12/17/16 12/17/16 Range/Units 07:20 07:20 07:20 WBC 13.6 H (3.8-10.6) k/uL Hgb (11.4-16.0) gm/dL Hct (34.0-46.0) % Neutrophils # 10.6 H (1.3-7.7) k/uL Monocytes # (0-1.0) k/uL PT 12.4 H (9.0-12.0) sec Glucose 115 H (74-99) mg/dL Total Bilirubin 1.8 H (0.2-1.3) mg/dL Total Protein 6.0 L (6.3-8.2) g/dL Albumin 3.1 L (3.5-5.0) g/dL Amylase (30-110) U/L Urine Appearance (Clear) Urine Protein (Negative) Ur Squamous Epith Cells (0-4) /hpf Urine Bacteria (None) /hpf Urine Mucus (None) /hpf Assessment and Plan Plan: Impression Present on admission febrile leukocytosis hypotensive suspect sepsis due to an acute cholecystitis Paroxysmal atrial fibrillation on anticoagulation savaysa Hypertension Present on admission nausea vomiting right and left upper quadrant pain suspect due to acute cholecystitis Present on admission nausea vomiting poor oral intake with clinical dehydration Plan Hold the fish oil [id number] Hold savaysa Pain control Consult cardiology service Consult medicine service for medical management IV hydration as ordered DVT and GI prophylaxis home meds as appropriate Repeat labs in the morning Further recommendations pending Monitor labs possible laparoscopic versus an open cholecystectomy tentatively scheduled for December 18 The above impression and plan of care have been discussed and directed by signing physician. Page Randhawa nurse practitioner acting as scribe for signing physician.
[2016-12-17] MEDS ORDERED: MAGNESIUM HYDROXIDE 2,400 MG/10 ML CUP PO PRN (10:44)
[2016-12-17] MEDS ORDERED: NA PHOS,M-B/NA PHOS,DI-BA 133 ML ENEMA RECTAL STA (11:05)
[2016-12-17] MEDS: CHOLECALCIFEROL 1,000 UNIT TAB PO SCH (11:09)
[2016-12-17] MEDS: MULTIVITAMINS, THERA 1 EACH TAB PO SCH (11:10)
--- NOTE | 2016-12-17 11:16 | P.CRDCN ---
History of Present Illness Consult date: 12/17/16 Consult reason: pre-op evaluation History of present illness: 76-year-old lady with history of hypertension and paroxysmal atrial fibrillation is admitted to hospital with acute cholecystitis. Cardiology had been consulted because of history of paroxysmal atrial fibrillation. Patient denies chest pain difficulty in breathing palpitations dizziness or syncope. She comes in primarily complaining of abdominal pain and had been diagnosed with cholecystitis and is to undergo cholecystectomy. An EKG on her shows that she is in sinus rhythm. Patient had last taken had oral anticoagulant sayasya at 3:00 on Tuesday. Patient can proceed with surgery after being off the anticoagulant for 48 hours. I do not see any contraindications for surgery under anesthesia from cardiac standpoint at this time. Review of Systems Constitutional: Denies chills. Denies fever. Eyes: Denies blurred vision. Denies pain. Ears, nose, mouth and throat: Denies headache. Denies sore throat. Cardiovascular: Denies chest pain. Denies shortness of breath. Respiratory: Denies cough. Gastrointestinal: Patient has abdominal pain. Denies diarrhea. Denies nausea. Denies vomiting. Musculoskeletal: Denies myalgias. Integumentary: Denies pruritus. Denies rash. Neurological: Denies numbness. Denies weakness. Psychiatric: Denies anxiety. Denies depression. Endocrine: Denies fatigue. Denies weight change. Genitourinary: Denies burning, hematuria, frequency of urination. Hematological: No anemia or excess bleeding. Past Medical History Past Medical History: Atrial Fibrillation, Hypertension Additional Past Medical History / Comment(s): Pt states she had rapid heart beat yrs ago and has had several tests run but never found out what it was. She also had anemia in the past. History of Any Multi-Drug Resistant Organisms: None Reported Past Surgical History: Heart Catheterization Additional Past Surgical History / Comment(s): Cardiac cath yrs ago-normal, uterine polypectomies-benign, colonoscopy-normal. Past Anesthesia/Blood Transfusion Reactions: No Reported Reaction Additional Past Anesthesia/Blood Transfusion Reaction / Comment(s): Pt has received blood in past without reaction. Smoking Status: Never smoker - Past Family History Father Family Medical History: Myocardial Infarction ([place]) Additional Family Medical History / Comment(s): Father of a [place] at age 86yrs. Mother Family Medical History: Cancer Additional Family Medical History / Comment(s): Mother had uterine cancer with surgery. She at age 89yrs. Medications and Allergies Home Medications Medication Instructions Recorded Confirmed Type Multivitamins, Thera [Multivitamin 1 tab PO DAILY 10/09/15 12/16/16 History (formulary)] [place]-3 Fatty Acids/Fish Oil [Fish 1 cap PO DAILY 10/09/15 12/16/16 History Oil 1,000 mg Softgel] Selenium 100 mcg PO DAILY 10/09/15 12/16/16 History Cholecalciferol [Vitamin D3] 1,000 unit PO DAILY 07/28/16 12/16/16 History Diltiazem HCl 60 mg PO BID@0900,2100 07/28/16 12/16/16 History Edoxaban Tosylate [Savaysa] 60 mg PO DAILY@1500 07/28/16 12/16/16 History Potassium 99 mg PO DAILY 07/28/16 12/16/16 History Atenolol 25 mg PO DAILY@0600 12/16/16 12/16/16 History Allergies Allergy/AdvReac Type Severity Reaction Status Date / Time No Known Allergies Allergy Verified 12/16/16 09:48 Physical Exam Vitals: Vital Signs Temp Pulse Pulse Resp BP BP Pulse Ox 12/17/16 07:00 99.8 F H 70 18 140/72 92 L 12/16/16 21:25 99.8 F H 71 16 141/62 93 L 12/16/16 15:35 98.3 F 58 L 18 142/71 92 L 12/16/16 14:45 99.0 F 50 L 20 118/68 95 12/16/16 14:29 99.0 F 53 L 20 121/56 94 L 12/16/16 12:44 100.1 F H 56 L 19 125/62 94 L 12/16/16 11:54 98.8 F 58 L 18 108/59 90 L Intake and Output 12/16/16 12/17/16 12/17/16 22:59 06:59 14:59 Intake Total 1300 Balance 1300 Intake: Intake, IV Titration 1300 Amount Piperacillin-Tazobactam 3 100 .375 gm In Dextrose/Water 1 50ml.bag @ 12.5 mls/hr IVPB Q8H [facility] Rx#: [id number] Sodium Chloride 0.9% 1, 1200 000 ml @ 100 mls/hr IV . Q10H [facility] Rx#:[id number] General: The patient is awake and alert, in no distress, and does not appear acutely ill. Skin: Skin is warm and dry and no rashes or lesions are noted. Eye: Pupils are equal, round and reactive to light, extra-ocular movements are intact; there is normal conjunctiva bilaterally. Ears, nose, mouth and throat: There are moist mucous membranes and no oral lesions. Neck: The neck is supple, there is no tenderness or JVD. Cardiovascular: [ There is a regular rate and rhythm.][ No murmur, rub or gallop is appreciated.] Respiratory: Lungs are clear to auscultation, respirations are non-labored, breath sounds are equal. Gastrointestinal: Mild right upper quadrant tenderness Back: There is no tenderness to palpation in the midline. There is no obvious deformity. Musculoskeletal: Normal ROM, no tenderness, There is no pedal edema. There is no calf tenderness or swelling. Extremities:[ No edema.] Vascular: [Femoral pulse is normal.][ Posterior tibial pulses are normal .][ Dorsalis pedis is palpable.] Neurological: CN II-XII intact. There are no obvious motor or sensory deficits. Speech is normal. Psychiatric: Cooperative, appropriate mood & affect, normal judgment. Results 12/17/16 07:20 12/17/16 07:20 Cardiac Enzymes 12/17/16 Range/Units 07:20 AST 36 (14-36) U/L Coagulation 12/17/16 Range/Units 07:20 PT 12.4 H (9.0-12.0) sec CBC 12/17/16 Range/Units 07:20 WBC 13.6 H (3.8-10.6) k/uL RBC 4.59 (3.80-5.40) m/uL Hgb 14.2 (11.4-16.0) gm/dL Hct 42.8 (34.0-46.0) % Plt Count 212 (150-450) k/uL Comprehensive Metabolic Panel 12/17/16 Range/Units 07:20 Sodium 138 (137-145) mmol/L Potassium 4.0 (3.5-5.1) mmol/L Chloride 106 (98-107) mmol/L Carbon Dioxide 25 (22-30) mmol/L BUN 12 (7-17) mg/dL Creatinine 0.57 (0.52-1.04) mg/dL Glucose 115 H (74-99) mg/dL Calcium 8.7 (8.4-10.2) mg/dL AST 36 (14-36) U/L ALT 51 (9-52) U/L Alkaline Phosphatase 84 (38-126) U/L Total Protein 6.0 L (6.3-8.2) g/dL Albumin 3.1 L (3.5-5.0) g/dL Current Medications Generic Name Dose Route Start Last Admin Trade Name Freq PRN Reason Stop Dose Admin Acetaminophen 650 mg 12/16/16 12:11 12/17/16 00:41 Tylenol Tab PO 650 mg Q6HR PRN Administration Mild Pain or Fever > 100.5 Atenolol 25 mg 12/17/16 06:00 12/17/16 06:11 Tenormin PO 25 mg DAILY@0600 [facility] Administration Cholecalciferol 1,000 unit 12/17/16 09:00 12/17/16 11:09 Vitamin D3 PO Not Given DAILY [facility] Diltiazem HCl 60 mg 12/16/16 21:00 12/17/16 08:42 Cardizem Oral PO 60 mg BID@0900,2100 [facility] Administration Edoxaban 60 mg 12/16/16 15:00 Savaysa PO DAILY@1500 [facility] Heparin Sodium (Porcine) 5,000 unit 12/16/16 21:00 12/17/16 08:43 Heparin SQ 5,000 unit BID [facility] Administration Hydromorphone HCl 0.5 mg 12/17/16 09:56 Dilaudid IV Q4H PRN Severe Pain Sodium Chloride 1,000 mls @ 100 mls/hr 12/16/16 12:15 12/17/16 08:49 Saline 0.9% IV Not Given .Q10H [facility] Piperacillin/Tazobactam/ 50 mls @ 12.5 mls/hr 12/16/16 20:00 12/17/16 03:30 Dextrose 3.375 gm/ IV Solution IVPB 12.5 mls/hr Q8H [facility] Administration Ibuprofen 400 mg 12/16/16 12:11 Motrin PO Q6HR PRN Mild Pain or Fever > 100.5 Magnesium Hydroxide 2,400 mg 12/17/16 10:44 Milk Of Magnesia PO DAILY PRN Constipation Miscellaneous Information 1 each 12/16/16 10:03 12/16/16 11:52 Rx Info: Iv Contrast Was Given MISCELLANE 12/18/16 10:03 1 each DAILY PRN Administration Per Protocol Multivitamins 1 each 12/17/16 12:00 12/17/16 11:10 Theragran PO Not Given 1200 [facility] Naloxone HCl 0.2 mg 12/16/16 12:11 Narcan IV Q2M PRN Opioid Reversal Ondansetron HCl 4 mg 12/16/16 15:10 Zofran IVP Q4H PRN Nausea And Vomiting Pantoprazole Sodium 40 mg 12/17/16 09:00 Protonix IV DAILY [facility] Potassium Chloride 2.5 meq 12/17/16 09:00 12/17/16 08:41 Potassium Chloride Oral Liquid PO 2.5 meq DAILY [facility] Administration Intake and Output 12/16/16 12/17/16 12/17/16 22:59 06:59 14:59 Intake Total 1300 Balance 1300 Intake: Intake, IV Titration 1300 Amount Piperacillin-Tazobactam 3 100 .375 gm In Dextrose/Water 1 50ml.bag @ 12.5 mls/hr IVPB Q8H [facility] Rx#: [id number] Sodium Chloride 0.9% 1, 1200 000 ml @ 100 mls/hr IV . Q10H [facility] Rx#:[id number] 12/17/16 07:20 12/17/16 07:20 EKG Interpretations (text) normal sinus rhythm Assessment and Plan Plan: Preop cardiac evaluation Paroxysmal atrial fibrillation Acute cholecystitis History of hypertension He can proceed with surgery any time after 5:00 this evening. Resume the oral anticoagulant whenever it is feasible from surgical standpoint
[2016-12-17] MEDS ORDERED: HUMAN PROTHROMBIN COMPLX IV ONE ×2 (12:00→17:00)
[2016-12-17] MEDS: PANTOPRAZOLE 40 MG/10 ML VIAL IV SCH (12:59)
--- NOTE | 2016-12-17 13:26 | P.CONS ---
History of Present Illness - Reason for Consult Consult date: 12/17/16 Medical management Requesting physician: Kala Santiago - Chief Complaint Abdominal pain - History of Present Illness This is a pleasant 72. Patient of Dr[address] Marinelli. Patient chronic stable medical conditions include atrial fibrillation, osteoarthritis, obesity. Patient on December started with increasing abdominal pain upper abdomen with nausea vomiting had a low-grade fever and rundown and admitted for the same. Ultrasound of the gallbladder showed of the gallbladder wall with multiple stones. Patient due to go to the operating room today. Patient's daughter is at the bedside, gave the history as patient is rather lethargic from pain medication Significant past medical history: Atrial fibrillation, osteoarthritis, obesity. Review of Systems Review of systems cannot be done as patient other lethargic from the pain medication Past Medical History Past Medical History: Atrial Fibrillation, Hypertension Additional Past Medical History / Comment(s): Pt states she had rapid heart beat yrs ago and has had several tests run but never found out what it was. She also had anemia in the past. History of Any Multi-Drug Resistant Organisms: None Reported Past Surgical History: Heart Catheterization Additional Past Surgical History / Comment(s): Cardiac cath yrs ago-normal, uterine polypectomies-benign, colonoscopy-normal. Past Anesthesia/Blood Transfusion Reactions: No Reported Reaction Additional Past Anesthesia/Blood Transfusion Reaction / Comm: Pt has received blood in past without reaction. Smoking Status: Never smoker Additional History: Lives with her - Past Family History Father Family Medical History: Myocardial Infarction (ID) Additional Family Medical History / Comment(s): Father of a ID at age 86yrs. Mother Family Medical History: Cancer Additional Family Medical History / Comment(s): Mother had uterine cancer with surgery. She at age 89yrs. Medications and Allergies Home Medications Medication Instructions Recorded Confirmed Type Multivitamins, Thera [Multivitamin 1 tab PO DAILY 10/09/15 12/16/16 History (formulary)] [place]-3 Fatty Acids/Fish Oil [Fish 1 cap PO DAILY 10/09/15 12/16/16 History Oil 1,000 mg Softgel] Selenium 100 mcg PO DAILY 10/09/15 12/16/16 History Cholecalciferol [Vitamin D3] 1,000 unit PO DAILY 07/28/16 12/16/16 History Diltiazem HCl 60 mg PO BID@0900,2100 07/28/16 12/16/16 History Edoxaban Tosylate [Savaysa] 60 mg PO DAILY@1500 07/28/16 12/16/16 History Potassium 99 mg PO DAILY 07/28/16 12/16/16 History Atenolol 25 mg PO DAILY@0600 12/16/16 12/16/16 History Allergies Allergy/AdvReac Type Severity Reaction Status Date / Time No Known Allergies Allergy Verified 12/16/16 09:48 Physical Exam Vitals: Vital Signs Temp Pulse Pulse Resp BP BP Pulse Ox 12/17/16 07:00 99.8 F H 70 18 140/72 92 L 12/16/16 21:25 99.8 F H 71 16 141/62 93 L 12/16/16 15:35 98.3 F 58 L 18 142/71 92 L 12/16/16 14:45 99.0 F 50 L 20 118/68 95 12/16/16 14:29 99.0 F 53 L 20 121/56 94 L VITAL SIGNS: Reviewed. BMI noted GENERAL: Well built, laying in bed lethargic from IV pain medication. EYES: Pupils equal. Conjunctiva normal. HEENT: External appearance of nose and ears normal, oral cavity grossly normal. NECK: JVD unable to be assessed; masses not palpable. HEART: First and second heart sounds are normal; no edema. LUNGS: Respiratory rate normal; decreased breath sounds. ABDOMEN: Soft, right upper abdominal tenderness with Phillips's sign, liver spleen not palpable, no masses palpable. LYMPHATICS: No lymph nodes palpable in the axilla and neck. PSYCH: Lethargic from pain medications but able to simple questions and dozes offl. NEUROLOGICAL: Grossly intact. Results CBC & Chem 7: 12/17/16 07:20 12/17/16 07:20 Labs: Abnormal Lab Results - Last 24 Hours (Table) 12/17/16 12/17/16 12/17/16 Range/Units 07:20 07:20 07:20 WBC 13.6 H (3.8-10.6) k/uL Neutrophils # 10.6 H (1.3-7.7) k/uL PT 12.4 H (9.0-12.0) sec Glucose 115 H (74-99) mg/dL Total Bilirubin 1.8 H (0.2-1.3) mg/dL Total Protein 6.0 L (6.3-8.2) g/dL Albumin 3.1 L (3.5-5.0) g/dL Comments: EKG normal sinus rhythm. CT of the abdomen suggestive of acute cholecystitis. Ultrasound abdomen shows possible diabetic steatosis, gallbladder wall thickening, with numerous stones Assessment and Plan Plan: Assessment: -Acute cholecystitis with choledocholithiasis Paroxysmal atrial fibrillation chronically on savaysa Obesity BMI 35.2 Leukocytosis from acute cholecystitis Plan: Patient is put on IV Zosyn. Nothing by mouth savaysa was held. Home oral medications can be resumed. Patient is medically stable to proceed for surgery care was discussed with the daughter the bedside questions were answered. Thank you Dr. Santiago
[2016-12-17] MEDS: HYDROmorphone 1 MG/ML 1 ML SYRINGE IV PRN ×2 (14:09→22:57)
[2016-12-17] MEDS ORDERED: IV FLUID CONTINUATION 1,000 ML IV ONE (15:41)
[2016-12-17] MEDS ORDERED: GLYCOPYRROLATE 0.2 MG/ML 2 ML VIAL ONE (16:10)
[2016-12-17] MEDS ORDERED: NEOSTIGMINE 1 MG/ML 10 ML VIAL ONE (16:10)
[2016-12-17] MEDS ORDERED: fentaNYL (PF) 50 MCG/ML 2 ML AMP ONE (16:10)
[2016-12-17] MEDS ORDERED: LIDOCAINE 1% INJ 10MG/ML (20 ML MDV) ONE (16:10)
[2016-12-17] MEDS ORDERED: PROPOFOL 10 MG/ML 20 ML VIAL IV ONE (16:10)
[2016-12-17] MEDS ORDERED: MIDAZOLAM 2 MG/2 ML VIAL ONE (16:10)
[2016-12-17] MEDS ORDERED: SUCCINYLCHOLINE CHLORIDE 100 MG/5 ML SYR IV ONE (16:10)
[2016-12-17] MEDS ORDERED: ROCURONIUM BROMIDE 10 MG/ML 10 ML VIAL IV ONE (16:10)
[2016-12-17] MEDS ORDERED: ePHEDrine 50 MG/ML 1 ML AMP ONE (16:10)
[2016-12-17] MEDS ORDERED: BUPIVACAIN-EPI 0.5%-1:200,000 30 ML VIAL SQ ONE ×3 (16:22→16:40)
[2016-12-17] MEDS ORDERED: HUMAN PROTHROMBIN COMPLX 500 UNIT/16 ML VIAL IV ONE (16:44)
--- NOTE | 2016-12-17 16:54 | ECHOF ---
Referral Reason:Pre op MEASUREMENTS -------- HEIGHT: 167.6 cm WEIGHT: 98.9 kg BP: 140/72 RVIDd: 2.6 cm (< 3.3) IVSd: 1.1 cm (0.6 - 1.1) LVIDd: 4.3 cm (3.9 - 5.3) LVPWd: 1.0 cm (0.6 - 1.1) IVSs: 1.6 cm LVIDs: 2.8 cm LVPWs: 1.5 cm LAESV Index (A-L): 15.01 ml/m Ao Diam: 3.6 cm (2.0 - 3.7) AV Cusp: 2.2 cm (1.5 - 2.6) LA Diam: 3.2 cm (2.7 - 3.8) MV EXCURSION: 20.130 mm (> 18.000) MV EF SLOPE: 117 mm/s (70 - 150) EPSS: 0.9 cm MV E Isaac: 1.10 m/s MV DecT: 263 ms MV A Isaac: 0.90 m/s MV E/A Ratio: 1.23 RAP: 5.00 mmHg RVSP: 35.44 mmHg FINDINGS -------- Sinus rhythm. This was a technically adequate study. There is borderline concentric left ventricular hypertrophy. Overall left ventricular systolic function is normal with, an EF between 60 - 65 %. The right ventricle is normal in size and function. Normal LA size by volume 22+/-6 ml/m2. The right atrium is normal in size. Aortic valve is trileaflet and is mildly thickened. There is no evidence of aortic regurgitation. There is no evidence of aortic stenosis. The mitral valve leaflets are mildly thickened. There is trace to mild mitral regurgitation. Trace tricuspid regurgitation present. There is no evidence of pulmonary hypertension. The right ventricular systolic pressure, as measured by Doppler, is 35.44mmHg. The pulmonic valve was not well visualized. The aortic root size is normal. Normal inferior vena cava with normal inspiratory collapse consistent with estimated right atrial pressure of 5 mmHg. The pericardium is normal. There is no pericardial effusion. CONCLUSIONS -------- 1. Sinus rhythm. 2. There is no evidence of pulmonary hypertension. 3. The right ventricular systolic pressure, as measured by Doppler, is 35.44mmHg. 4. The pulmonic valve was not well visualized. 5. The aortic root size is normal. 6. There is no pericardial effusion. 7. This was a technically adequate study. 8. There is borderline concentric left ventricular hypertrophy. 9. Overall left ventricular systolic function is normal with, an EF between 60 - 65 %. 10. Normal LA size by volume 22+/-6 ml/m2. 11. Aortic valve is trileaflet and is mildly thickened. 12. The mitral valve leaflets are mildly thickened. 13. There is trace to mild mitral regurgitation. 14. Trace tricuspid regurgitation present. ENERGY PROJECTS LEAD: Wilder Bailey RDCS
[2016-12-17] MEDS ORDERED: LACTATED RINGERS 1,000 ML IV ONE (17:06)
--- NOTE | 2016-12-17 18:50 | P.OP ---
Date of Procedure: 12/17/16 Preoperative Diagnosis: Acute cholecystitis Postoperative Diagnosis: Acute cholecystitis Procedure(s) Performed: Laparoscopic choelcystectomy Implants: Anesthesia: JOANA Surgeon: Kala Santiago Pathology: other Condition: stable Disposition: PACU Indications for Procedure: Operative Findings: Acute cholecystitis Description of Procedure: The patient is a 76-year-old female who presented with epigastric and upper abdominal pain which localized in the right upper quadrant was tender with guarding in the right upper quadrant elevated white count and an ultrasound suggested cholelithiasis. Clinical diagnosis of acute cholecystitis was made. Been on surveillance and was recommended to not be operated on for 48 hours. The risks benefits and possible complications of the procedure were discussed in detail and informed consent was obtained. Patient was identified in the preop operating holding area questions were answered and she was taken back to the operating room where she was placed in the supine position. She was given general anesthesia with endotracheal intubation followed by the placement of an orogastric tube and a Hong catheter appropriate timeout was called the indication procedure ALLERGIES medications from her prophylaxis were all discussed. Abdomen is prepped and draped in the usual sterile surgical fashion. Quadrant was identified in the abdominal cavity was entered under direct vision using Optiview technique and abdomen was insufflated to 18 mmHg. Once that was done a 10 mm epigastric port and two 5 mm right upper quadrant ports were placed.the gallbladder was retracted cephalad and superiorly.with millimeter port was placed in the supraumbilical region The fundus was retracted so as to make the Calot's triangle more visible. The gallbladder itself was really distended and initial attempts were made with the help of an ovarian needle to drain it however it was full of stones with a very thickened wall and thick inflammatory adhesions around it minimal manipulation resulted in significant amount of bleeding that was not stopping. Bleeding from the port site incisions had also continued at that time and was considerable. At this time the decision was made to give the patient KCENTRA after which this bleeding was started to subside. There were inflammatory peritoneal adhesions and the gallbladder was distended. The adhesions were taken down with the help of blunt dissection and using some electrocautery, skeletonizing the cystic duct and the multiple branches of the cystic artery. Cystic duct was clipped proximally and distally followed by clipping of the branches of the cystic artery following which they were transected sharply with the help of the charles. The gallbladder was then taken off the gallbladder fossa with the help of electrocautery and placed in an Endo Catch bag and removed through the 10 m port site after dilating the port site with a Jasmyn. The port was replaced and the gallbladder fossa was inspected and hemostasis was secured with the help of electrocautery the abdomen was thoroughly irrigated and sucked dry. [place] were noted to be in the appropriate position. A channel drain was introduced and taken out of the right upper quadrant 5 mm port site was placed in the subhepatic fossa. It was secured with the help of 3-0 nylon. At this time the procedure was completed all ports were removed and abdomen desufflated. The epigastric port site was closed with the help of running 0 Vicryl using an UR6 needle. Skin was closed with 4-0 Monocryl. Dermabond was applied. The patient was extubated and taken to recovery room in stable condition the orogastric tube and Hong catheter were removed prior to extubation. There were no complications.
[2016-12-17] MEDS: HYDROmorphone 1 MG/ML 1 ML SYRINGE IVP ONE ×2 (19:09→19:15)
[2016-12-18] MEDS: HYDROmorphone 1 MG/ML 1 ML SYRINGE IV PRN ×2 (03:13→10:27)
[2016-12-18] MEDS: PIPERACILLIN-TAZOBACTAM 3.375 GM in DEXTROSE/WATER 1 50ML.BAG IVPB SCH ×3 (04:33→20:27)
[2016-12-18] MEDS: HYDROcodone/APAP 5-325MG 1 EACH TAB PO PRN ×3 (06:19→22:26)
[2016-12-18] MEDS: ATENOLOL 25 MG TAB PO SCH (06:22)
[2016-12-18] MEDS: SODIUM CHLORIDE 0.9% 1,000 ML IV SCH ×2 (06:26→15:09)
[2016-12-18 07:08] LABS: Basophils % (A) 0 %; CH 30.6; CHCM 32.5; Eosinophils # (A) 0.1 k/uL (0-0.7); Eosinophils % (A) 1 %; HCT 38.4 % (34.0-46.0); HDW 2.38; HGB 12.7 gm/dL (11.4-16.0); Luc # (Auto) 0.24; Luc % (Auto) 3; Lymphocytes # (A) 1.8 k/uL (1.0-4.8); Lymphocytes % (A) 19 %; MCH 31.3 pg (25.0-35.0); MCHC 33.1 g/dL (31.0-37.0); MCV 94.6 fL (80.0-100.0); Mean Platelet Volume 7.3; Monocytes # (A) 0.6 k/uL (0-1.0); Monocytes % (A) 6 %; Neutrophils # (A) 6.8 k/uL (1.3-7.7); Neutrophils % (A) 72 %; RBC 4.06 m/uL (3.80-5.40); RDW 13.3 % (11.5-15.5); WBC 9.5 k/uL (3.8-10.6); WBC (Perox) 10.21
[2016-12-18 07:15] LABS: INR 1.2 (<1.1); Prothrombin Time 11.8 sec (9.0-12.0)
[2016-12-18 07:30] LABS: ALT 135 U/L (9-52); AST 90 U/L (14-36); Alkaline Phosphatase 114 U/L (38-126); Anion Gap 8 mmol/L; Blood Urea Nitrogen 12 mg/dL (7-17); Calcium 8.6 mg/dL (8.4-10.2); Carbon Dioxide 24 mmol/L (22-30); Chloride 106 mmol/L (98-107); Glucose 95 mg/dL (74-99); Non-African American GFR(MDRD) >60 (>60 ml/min/1.73 sqM); Potassium 3.6 mmol/L (3.5-5.1); Sodium 138 mmol/L (137-145); Total Bilirubin 2.5 mg/dL (0.2-1.3); Total Protein 5.4 g/dL (6.3-8.2)
[2016-12-18] MEDS: CHOLECALCIFEROL 1,000 UNIT TAB PO SCH (08:42)
[2016-12-18] MEDS: DILTIAZEM ORAL 60 MG TAB PO SCH ×2 (08:42→20:40)
[2016-12-18] MEDS: ENOXAPARIN 40 MG/0.4 ML SYRINGE SQ SCH (08:43)
[2016-12-18] MEDS: PANTOPRAZOLE 40 MG/10 ML VIAL IV SCH (08:43)
[2016-12-18] MEDS: POTASSIUM CHLORIDE ORAL LIQUID 40 MEQ/30 ML CUP PO SCH (08:43)
[2016-12-18] MEDS: MULTIVITAMINS, THERA 1 EACH TAB PO SCH (14:32)
--- NOTE | 2016-12-18 15:07 | P.PN ---
Subjective Principal diagnosis: Acute cholecystitis Patient is a well after her left scopic cholecystectomy. There is no nausea no vomiting she's tolerating clear liquids. She is ambulating with some difficulty. She is having pain in the epigastric region as well as the site where the drain is coming out. Although she does not complain of any dyspnea she is requiring nasal cannula for her low O2 sats. Objective - Vital Signs Vital signs: Vital Signs Temp 98.2 F 12/18/16 07:00 Pulse 62 12/18/16 08:00 Resp 20 12/18/16 08:00 BP 120/64 12/18/16 07:00 Pulse Ox 92 L 12/18/16 07:00 Intake & Output 12/17/16 12/18/16 12/18/16 18:59 06:59 18:59 Intake Total 2500 1300 Output Total 150 60 30 Balance 2350 1240 -30 Intake: IV 1450 1250 Sodium Chloride 0.9% 1, 1200 000 ml @ 100 mls/hr IV . Q10H [facility] Rx#:[id number] Intake, IV Titration 1050 50 Amount Piperacillin-Tazobactam 3 50 50 .375 gm In Dextrose/Water 1 50ml.bag @ 12.5 mls/hr IVPB Q8H [facility] Rx#: [id number] Sodium Chloride 0.9% 1, 1000 000 ml @ 100 mls/hr IV . Q10H [facility] Rx#:[id number] Output: Drainage 60 30 Anterior Abdomen 60 30 Estimated Blood Loss 150 Other: # Voids 3 3 # Bowel Movements 1 - Constitutional General appearance: Present: mild distress, morbidly obese - EENT Eyes: Present: PERRLA - Cardiovascular Rhythm: regular - Gastrointestinal Gastrointestinal Comment(s): Incisions are healing as expected. Drain shows serous and was discharged which is minimal. - Labs CBC & Chem 7: 12/18/16 06:50 12/18/16 06:50 Labs: Abnormal Lab Results - Last 24 Hours (Table) 12/18/16 Range/Units 06:50 Total Bilirubin 2.5 H (0.2-1.3) mg/dL AST 90 H (14-36) U/L ALT 135 H (9-52) U/L Total Protein 5.4 L (6.3-8.2) g/dL Albumin 2.6 L (3.5-5.0) g/dL Microbiology - Last 24 Hours (Table) 12/16/16 12:38 Blood Culture - Preliminary Blood No Growth after 48 hours Assessment and Plan (1) Acute cholecystitis Status: Acute (2) Atrial fibrillation Status: Acute Plan: Patient is doing overall okay. She is not feeling very hungry at this time. It is okay however for her to advance her diet as tolerated and use coffee. She is recommended to use her incentive spirometry 10 times an hour and to get up with decreased chance of atelectasis and decreased dependency on nasal cannula. She is currently on Lovenox for DVT prevention. If however service and needs to be restarted it can be done within the next 48 hours probably Tuesday her drainage from her drain is minimal therefore I do not believe she is at risk of bleeding. In the meanwhile continue with the Lovenox. Anticipate discharge Tuesday
--- NOTE | 2016-12-18 16:27 | P.PN ---
<Jaylin Salomon - Last Filed: 12/18/16 16:13> Progress Note - Text DATE OF SERVICE: 12/18/2016 PRESENTING COMPLAINT: Right upper quadrant pain with nausea and vomiting INTERVAL HISTORY: 72-year-old female who began having right upper quadrant pain on December 14, with increasing incidence of said pain associated nausea vomiting low-grade fever. Ultrasound of the gallbladder showed multiple stones. Patient is now postop day 1 from a laparoscopic cholecystectomy. 12/18/2016: Patient sitting up in a chair at the bedside. Many family members at the bedside. Complains of right upper quadrant pain particularly where they inserted the scope, however states she does feel better than she did when she arrived. Tolerating a clear liquid diet. Okay per surgery to advance the diet. REVIEW OF SYSTEMS: Done for constitutional ,cardiovascular, GI, pulmonary with relevant findings as above. CURRENT MEDICATIONS [place], Tenormin, Cardizem, Lovenox, Motrin, Zosyn, Zofran. PHYSICAL EXAM VITAL SIGNS: GENERAL APPEARANCE: Sitting up in a chair at the bedside, not in distress appears somewhat lethargic. EYES: Pupils equal. Conjunctiva normal. NECK: JVD not raised. Mass not palpable. RESPIRATORY: Respiratory effort normal. Lungs clear to auscultation. CARDIOVASCULAR: First and second sounds normal. No edema. ABDOMEN: Soft, right upper quadrant tenderness, drainage in place Liver and spleen not palpable. No mass palpable. PSYCHIATRY: Alert and oriented x3. Mood and affect normal. INVESTIGATIONS: CBC and BMP unremarkable Total bilirubin 2.5 AST 90, ALTs 135, alkaline phosphatase 114, total protein 5.4, albumin 2.6. ASSESSMENT: -Acute cholecystitis with choledocholithiasis Paroxysmal atrial fibrillation chronically on savaysa Obesity BMI 35.2 Leukocytosis from acute cholecystitis PLAN: Continue current medication and treatment plan, we'll monitor closely along with surgery. All questions answered to patient and family satisfaction. Tentative discharge planning date is Tuesday per surgery's note. LANDMAN statement: Patient was seen and examined by nurse practitioner Jaylin Salomon and all elements of the case discussed with attending Dr. Morales <Cristiano Morales - Last Filed: 12/18/16 20:03> Progress Note - Text Attending note. Date of service-12/19/2016 This patient was seen and examined by me today. I reviewed the note of my nurse practitioner, Ms. Salomon. Discussed with her, additional findings as below. Patient status post cholecystectomy. Quadrant drain in place. Some pain at the operative site. Did tolerate some clear liquids. Multiple family members at the bedside. On examination: Abdominal tenderness, drain in the right abdomen. Investigations: White count 9.5 Assessment and plan: Cholecystectomy for acute cholecystitis and choledocholithiasis, with a drain in place. White count is coming down. On clear liquids on IV fluids. Encouraged to ambulate. Care discussed with the patient and family the bedside
[2016-12-19] MEDS: HYDROcodone/APAP 5-325MG 1 EACH TAB PO PRN ×2 (04:09→08:31)
[2016-12-19] MEDS: PIPERACILLIN-TAZOBACTAM 3.375 GM in DEXTROSE/WATER 1 50ML.BAG IVPB SCH ×3 (06:11→20:15)
[2016-12-19] MEDS: ATENOLOL 25 MG TAB PO SCH (06:19)
[2016-12-19 07:18] LABS: Basophils % (A) 0 %; CHCM 33.1; Eosinophils # (A) 0.2 k/uL (0-0.7); Eosinophils % (A) 3 %; HCT 37.6 % (34.0-46.0); HDW 2.41; HGB 12.5 gm/dL (11.4-16.0); Luc # (Auto) 0.22; Luc % (Auto) 3; Lymphocytes # (A) 1.3 k/uL (1.0-4.8); Lymphocytes % (A) 17 %; MCH 31.3 pg (25.0-35.0); MCHC 33.3 g/dL (31.0-37.0); MCV 94.1 fL (80.0-100.0); Mean Platelet Volume 7.4; Monocytes # (A) 0.5 k/uL (0-1.0); Monocytes % (A) 6 %; Neutrophils # (A) 5.7 k/uL (1.3-7.7); Neutrophils % (A) 72 %; RBC 3.99 m/uL (3.80-5.40); RDW 13.4 % (11.5-15.5); WBC 7.9 k/uL (3.8-10.6); WBC (Perox) 8.61
[2016-12-19 07:52] LABS: ALT 250 U/L (9-52); AST 161 U/L (14-36); Alkaline Phosphatase 135 U/L (38-126); Anion Gap 5 mmol/L; Blood Urea Nitrogen 10 mg/dL (7-17); Calcium 8.6 mg/dL (8.4-10.2); Carbon Dioxide 27 mmol/L (22-30); Chloride 105 mmol/L (98-107); Glucose 105 mg/dL (74-99); Non-African American GFR(MDRD) >60 (>60 ml/min/1.73 sqM); Potassium 3.9 mmol/L (3.5-5.1); Sodium 137 mmol/L (137-145); Total Bilirubin 1.5 mg/dL (0.2-1.3); Total Protein 5.2 g/dL (6.3-8.2)
[2016-12-19] MEDS: ENOXAPARIN 40 MG/0.4 ML SYRINGE SQ SCH (08:04)
[2016-12-19] MEDS: DILTIAZEM ORAL 60 MG TAB PO SCH ×2 (08:04→20:15)
[2016-12-19] MEDS: POTASSIUM CHLORIDE ORAL LIQUID 40 MEQ/30 ML CUP PO SCH (08:04)
[2016-12-19] MEDS: CHOLECALCIFEROL 1,000 UNIT TAB PO SCH (08:04)
[2016-12-19] MEDS: PANTOPRAZOLE 40 MG TABLET PO SCH (08:04)
[2016-12-19] MEDS: MULTIVITAMINS, THERA 1 EACH TAB PO SCH (12:54)
[2016-12-19] MEDS: traMADol 50 MG TAB PO PRN ×2 (15:32→21:04)
--- NOTE | 2016-12-19 18:38 | P.PN ---
<Jaylin Salomon - Last Filed: 12/19/16 18:30> Progress Note - Text DATE OF SERVICE: 12/19/2016 PRESENTING COMPLAINT: Right upper quadrant pain with nausea and vomiting INTERVAL HISTORY: 72-year-old female who began having right upper quadrant pain on December 14, with increasing incidence of said pain associated nausea vomiting low-grade fever. Ultrasound of the gallbladder showed multiple stones. Patient is now postop day 1 from a laparoscopic cholecystectomy. 12/18/2016: Patient sitting up in a chair at the bedside. Many family members at the bedside. Complains of right upper quadrant pain particularly where they inserted the scope, however states she does feel better than she did when she arrived. Tolerating a clear liquid diet. Okay per surgery to advance the diet. 12/19/2016: Up in the bed does complain about right sided quadrant pain where GEOVANNA drain is located, states it's a shooting pain and it's constant. GEOVANNA drain with sanguinous drainage about half full. Patient ambulates in the hallway with family, on clear liquids tolerating that. Patient has 2 daughters at the bedside. REVIEW OF SYSTEMS: Done for constitutional ,cardiovascular, GI, pulmonary with relevant findings as above. CURRENT MEDICATIONS [place], Tenormin, Cardizem, Lovenox, Motrin, Zosyn, Zofran. PHYSICAL EXAM VITAL SIGNS: Temperature 98.1, pulse 64, respiratory rate 18, blood pressure 120/70, oxygen saturation 95% on room air. GENERAL APPEARANCE: Sitting up in a chair at the bedside, not in distress appears somewhat lethargic. EYES: Pupils equal. Conjunctiva normal. NECK: JVD not raised. Mass not palpable. RESPIRATORY: Respiratory effort normal. Lungs diminished to auscultation. CARDIOVASCULAR: First and second sounds normal. No edema. ABDOMEN: Soft, right upper quadrant tenderness, GEOVANNA drain in place with sanguinous drainage Liver and spleen not palpable. No mass palpable. PSYCHIATRY: Alert and oriented x3. Mood and affect normal. INVESTIGATIONS: Total bilirubin 1.5 AST 161, ALTs 250, alkaline phosphatase 135, total protein 5.2, albumin 2.6. ASSESSMENT: -Acute cholecystitis with choledocholithiasis, postop day 2 -Paroxysmal atrial fibrillation chronically on savaysa -Obesity BMI 35.2 -Leukocytosis from acute cholecystitis PLAN: Continue current medication and treatment plan, we'll monitor closely along with surgery. All questions answered to patient and family satisfaction. Tentative discharge planning date is Tuesday per surgery. ROLLING MACHINE TENDER statement: Patient was seen and examined by nurse practitioner Jaylin Salomon and all elements of the case discussed with attending Dr. Morales <Cristiano Morales - Last Filed: 12/19/16 19:09> Progress Note - Text Attending note. Date of service-12/19/2016 This patient was seen and examined by me today. I reviewed the note of my nurse practitioner, Ms. Salomon. Discussed with her, additional findings as below. This is a patient status post cholecystectomy for acute cholecystitis and choledocholithiasis. Abdominal drain was taken out today. Pain is better. Patient did walk the hallway. Daughters at the bedside On examination: Abdomen-mild tenderness, no guarding or rigidity, lungs fair entry Investigations: White count 7.9, patient 3.9 AST 161, PLT 250 bilirubin 1.5 Assessment and plan: -Acute hepatitis, postoperative, could be ischemic liver, due to significant loss during surgery from patient being on anticoagulation. Residual bile duct stone, causing the increased LFTs still possible.. Patient's Percocet because it conditions and acetaminophen will be discontinued. Patient may use a heating pad on Ultram for pain control. This was discussed with the patient and family. Repeat labs in the morning. -Acute hypoalbuminemia as an acute phase reactant -Hyper bilirubinemia
--- NOTE | 2016-12-19 18:46 | P.PN ---
Progress Note - Text S; much better thatn yesterday. No nasuea or [place]. Pain is better controlled O: Afeb VSS. Abdonen is appropriately tender. Incisions healing well A/p : S/p Linwood luis DC, JP, advance diet as tolerated. DC in 24 hours as loing as labs are ok , pain is well controlled and ambulating well.
[2016-12-19 20:36] VITALS: RESP 18
[2016-12-20] MEDS: PIPERACILLIN-TAZOBACTAM 3.375 GM in DEXTROSE/WATER 1 50ML.BAG IVPB SCH ×2 (06:05→12:33)
[2016-12-20] MEDS: ATENOLOL 25 MG TAB PO SCH (06:20)
[2016-12-20] MEDS: PANTOPRAZOLE 40 MG TABLET PO SCH (07:15)
[2016-12-20 07:49] VITALS: BP 137/82; PULSE 67; TEMP 98.5
[2016-12-20] MEDS: CHOLECALCIFEROL 1,000 UNIT TAB PO SCH (08:13)
[2016-12-20] MEDS: DILTIAZEM ORAL 60 MG TAB PO SCH (08:13)
[2016-12-20] MEDS: POTASSIUM CHLORIDE ORAL LIQUID 40 MEQ/30 ML CUP PO SCH (08:13)
[2016-12-20] MEDS: ENOXAPARIN 40 MG/0.4 ML SYRINGE SQ SCH (08:14)
[2016-12-20 08:15] LABS: ALT 192 U/L (9-52); AST 67 U/L (14-36); Alkaline Phosphatase 150 U/L (38-126); Anion Gap 5 mmol/L; Blood Urea Nitrogen 10 mg/dL (7-17); Calcium 8.6 mg/dL (8.4-10.2); Carbon Dioxide 29 mmol/L (22-30); Chloride 103 mmol/L (98-107); Glucose 96 mg/dL (74-99); Non-African American GFR(MDRD) >60 (>60 ml/min/1.73 sqM); Potassium 3.9 mmol/L (3.5-5.1); Sodium 137 mmol/L (137-145); Total Bilirubin 1.1 mg/dL (0.2-1.3); Total Protein 5.5 g/dL (6.3-8.2)
[2016-12-20 08:18] LABS: Basophils % (A) 0 %; CH 30.6; CHCM 32.7; Eosinophils # (A) 0.3 k/uL (0-0.7); Eosinophils % (A) 4 %; HCT 37.7 % (34.0-46.0); HDW 2.42; HGB 12.8 gm/dL (11.4-16.0); Luc # (Auto) 0.18; Luc % (Auto) 3; Lymphocytes # (A) 1.5 k/uL (1.0-4.8); Lymphocytes % (A) 23 %; MCH 31.9 pg (25.0-35.0); MCHC 33.9 g/dL (31.0-37.0); MCV 94.1 fL (80.0-100.0); Mean Platelet Volume 7.1; Monocytes # (A) 0.4 k/uL (0-1.0); Monocytes % (A) 6 %; Neutrophils # (A) 4.2 k/uL (1.3-7.7); Neutrophils % (A) 64 %; RBC 4.01 m/uL (3.80-5.40); RDW 13.5 % (11.5-15.5); WBC 6.6 k/uL (3.8-10.6); WBC (Perox) 6.68
[2016-12-20] MEDS: traMADol 50 MG TAB PO PRN ×2 (08:27→13:51)
[2016-12-20] MEDS: MULTIVITAMINS, THERA 1 EACH TAB PO SCH (12:32)
--- NOTE | 2016-12-20 13:11 | P.DS ---
Providers Date of admission: 12/16/16 13:55 Expected date of discharge: 12/20/16 Attending physician: Kala Nevarez Consults: 12/16/16 12:11 Consult Physician Stat Consulting Provider: Cristiano Morales Consult Reason/Comments: Acute Cholecystitis, Afib, Medical management Do you want consulting provider notified?: Yes Consult Physician Stat Consulting Provider: Marcell Rust Consult Reason/Comments: History of Afib, Acute cholecystitis Do you want consulting provider notified?: Yes Primary care physician: Lawrence [place] Hospital Course: 76-year-old was admitted to the emergency room on the day of admission with a chief complaint of developing abdominal pain right upper quadrant radiating to the back with nausea vomiting fever chills inability to keep fluids down onset December 14. Patient states symptoms have been ongoing and with any movement symptoms seem to be worse. Patient stated that "I just felt terrible was the worst pain ever experienced. Patient stated on December 14 after eating sausage vomited and developed pain in the right upper quadrant. Patient states not had prior incident. In the emergency room the temp was 100.8. Heart rate was in the 60s blood pressure 165/74 with a white count of 18.3. CAT scan of the abdomen and pelvis was obtained in the emergency room it showed acute cholecystitis. Patient was admitted to the services of the attending Patient does have a past medical history for paroxysmal atrial fibrillation is on anticoagulation savaysa. Patient stated that she did take savaysa yesterday at 3:00 none today. Patient currently is denying chest pain dizziness lightheadedness. The 12-lead EKG in the emergency room sinus bradycardia heart rate in the patient states that she did have a stress test done in September 2015 with no acute findings reviewing medical records show an echocardiogram was obtained in September 2015 it showed left ventricular systolic function normal with an EF between 55 and 60% no valvular heart disease. Cardiology consultation was requested. Patient was seen by retail service lead merchandiser Dr. Pool who did not see any contraindication for surgery under anesthesia from a cardiac standpoint. Patient was felt to be appropriate to proceed with surgery after being off the anticoagulation for at least 48 hours and on December 17 the patient underwent a laparoscopic cholecystectomy for acute cholecystitis The diet was able to be advanced patient tolerated the diet and the Justin- Munguia drains were removed patient's pain was well-controlled patient was ambulating in the [place]. Patient was felt to be appropriate to be discharged Impression Present on admission febrile leukocytosis hypotensive suspect sepsis due to an acute cholecystitis Paroxysmal atrial fibrillation on anticoagulation savaysa Hypertension Present on admission nausea vomiting right and left upper quadrant pain suspect due to acute cholecystitis Present on admission nausea vomiting poor oral intake with clinical dehydration Status post December 17 laparoscopic cholecystectomy for acute cholecystitis Obesity BMI 35 Mildly elevated liver enzymes trending down The above impression and plan of care have been discussed and directed by signing physician. Page Randhawa nurse practitioner acting as scribe for signing physician. Patient Condition at Discharge: Good Plan - Discharge Summary New Discharge Prescriptions: New HYDROcodone/APAP 5-325MG [Blanca 5-325] 1 tab PO Q4HR PRN #15 tab PRN Reason: Mild To Moderate Pain Ibuprofen [Motrin] 400 mg PO Q6HR PRN #30 tab PRN Reason: Mild Pain Or Fever > 100.5 Continue Multivitamins, Thera [Multivitamin (formulary)] 1 tab PO DAILY Selenium 100 mcg PO DAILY Eminence-3 Fatty Acids/Fish Oil [Fish Oil 1,000 mg Softgel] 1 cap PO DAILY Diltiazem HCl 60 mg PO BID@0900,2100 Cholecalciferol [Vitamin D3] 1,000 unit PO DAILY Potassium 99 mg PO DAILY Edoxaban Tosylate [Savaysa] 60 mg PO DAILY@1500 Atenolol 25 mg PO DAILY@0600 Discharge Medication List Multivitamins, Thera [Multivitamin (formulary)] 1 tab PO DAILY 10/09/15 [History ] Eminence-3 Fatty Acids/Fish Oil [Fish Oil 1,000 mg Softgel] 1 cap PO DAILY [History] Selenium 100 mcg PO DAILY 10/09/15 [History] Cholecalciferol [Vitamin D3] 1,000 unit PO DAILY 07/28/16 [History] Diltiazem HCl 60 mg PO BID@0900,2100 07/28/16 [History] Edoxaban Tosylate [Savaysa] 60 mg PO DAILY@1500 07/28/16 [History] Potassium 99 mg PO DAILY 07/28/16 [History] Atenolol 25 mg PO DAILY@0600 12/16/16 [History] HYDROcodone/APAP 5-325MG [Blanca 5-325] 1 tab PO Q4HR PRN #15 tab 12/20/16 [Rx] Ibuprofen [Motrin] 400 mg PO Q6HR PRN #30 tab 12/20/16 [Rx] Follow up Appointment(s)/Referral(s): Lawrence Marinelli DO [Primary Care Provider] - 1-2 days Kala Nevarez MD [STAFF PHYSICIAN] - 1 Week Ambulatory/Diagnostic Orders: Comprehensive Metabolic Panel [LAB.AMB] Time Frame: 12/24/16, Location: Determined By Patient Activity/Diet/Wound Care/Special Instructions: May shower No submersion into water such as a pool hot tub until seen in a follow-up visit with Dr. nevarez No lifting over 4 pounds No driving until seen in the office visit in one week Discharge Disposition: HOME SELF-CARE
--- NOTE | 2016-12-21 18:10 | P.PN ---
Progress Note - Text Date of service-12/20/2016 PRESENTING COMPLAINT: Right upper quadrant pain with nausea and vomiting INTERVAL HISTORY: 72-year-old female who began having right upper quadrant pain on December 14, with increasing incidence of said pain associated nausea vomiting low-grade fever. Ultrasound of the gallbladder showed multiple stones. Patient is now postop day 1 from a laparoscopic cholecystectomy. 12/18/2016: Patient sitting up in a chair at the bedside. Many family members at the bedside. Complains of right upper quadrant pain particularly where they inserted the scope, however states she does feel better than she did when she arrived. Tolerating a clear liquid diet. Okay per surgery to advance the diet. 12/19/2016: Up in the bed does complain about right sided quadrant pain where GEOVANNA drain is located, states it's a shooting pain and it's constant. GEOVANNA drain with sanguinous drainage about half full. Patient ambulates in the hallway with family, on clear liquids tolerating that. Patient has 2 daughters at the bedside. 12/20/2016: Patient doing much better. Up and about. Abdominal pain. Did start some diet. No nausea vomiting. GEOVANNA drain removed REVIEW OF SYSTEMS: Done for constitutional ,cardiovascular, GI, pulmonary with relevant findings as above. CURRENT MEDICATIONS Makinen, Tenormin, Cardizem, Lovenox, Motrin, Zosyn, Zofran. PHYSICAL EXAM VITAL SIGNS: 98.5, 67, 18, 137/82, 90% room air GENERAL APPEARANCE: Sitting up in a chair at the bedside, not in distress appears somewhat lethargic. EYES: Pupils equal. Conjunctiva normal. NECK: JVD not raised. Mass not palpable. RESPIRATORY: Respiratory effort normal. Lungs diminished to auscultation. CARDIOVASCULAR: First and second sounds normal. No edema. ABDOMEN: Soft, decreased tenderness . Liver and spleen not palpable. No mass palpable. PSYCHIATRY: Alert and oriented x3. Mood and affect normal. INVESTIGATIONS: White count 6.6, potassium 3.9, LFTs improving ASSESSMENT: -Acute cholecystitis with choledocholithiasis, postop day 2 -Paroxysmal atrial fibrillation chronically on savaysa -Obesity BMI 35.2 -Leukocytosis from acute cholecystitis, improved PLAN: Doing much better. Care was discussed discussed with the patient and daughters at the bedside. Prescription given for repeat LFTs an outpatient. Okay to continue savaysa if okay with surgery. Thank you Dr. Santiago
== END 2016-12-20 14:15 | disposition home or self-care (01) | DRG 854 ==
LOC: EC 09:21 → 5MS5E 13:55
PROVIDERS: ADMIT Surgery; ATTEND Surgery
PROC: 0FT44ZZ Resection of Gallbladder, Percutaneous Endoscopic Approach (ICD-10-PCS; principal; 2016-12-17 16:10)
DX: A41.9 Sepsis, unspecified organism (principal); K80.42 Calculus of bile duct with acute cholecystitis without obstruction; B17.9 Acute viral hepatitis, unspecified; I48.0 Paroxysmal atrial fibrillation; E86.0 Dehydration; I10 Essential (primary) hypertension; E66.9 Obesity, unspecified; K59.00 Constipation, unspecified; M19.90 Unspecified osteoarthritis, unspecified site; Z68.35 Body mass index [BMI] 35.0-35.9, adult; Z79.01 Long term (current) use of anticoagulants; Z79.899 Other long term (current) drug therapy; Z82.49 Family history of ischemic heart disease and other diseases of the circulatory system
CPT/HCPCS: 36415; 71010; 74177; 76705; 80053; 81001; 82150; 83605; 83690; 85025; 85610; 85730; 87040; 88304; 93005; 93306; 94760; 96365; 96366; 96375; 99285

== ENCOUNTER → 2016-12-24 | Outpatient (CLI) | payer MEDICARE ==
[2016-12-24 11:27] LABS: ALT 105 U/L (9-52); AST 26 U/L (14-36); Alkaline Phosphatase 153 U/L (38-126); Anion Gap 10 mmol/L; Blood Urea Nitrogen 14 mg/dL (7-17); Calcium 10.1 mg/dL (8.4-10.2); Carbon Dioxide 24 mmol/L (22-30); Chloride 105 mmol/L (98-107); Glucose 101 mg/dL (74-99); Non-African American GFR(MDRD) >60 (>60 ml/min/1.73 sqM); Potassium 4.8 mmol/L (3.5-5.1); Sodium 139 mmol/L (137-145); Total Bilirubin 0.7 mg/dL (0.2-1.3); Total Protein 6.9 g/dL (6.3-8.2)
== END | disposition home or self-care (01) ==
LOC: LABWHC1 10:47
PROVIDERS: ATTEND Hospitalist
DX: K75.9 Inflammatory liver disease, unspecified (principal)
CPT/HCPCS: 36415; 80053

== ENCOUNTER → 2017-11-22 | Outpatient (CLI) | payer MEDICARE ==
--- NOTE | 2017-11-22 07:57 | BD ---
EXAMINATION TYPE: Axial Bone Density DATE OF EXAM: 11/22/2017 COMPARISON: NONE CLINICAL HISTORY: Postmenopausal female Height: 5 FT 4 1/4 IN Weight: 221 FRAX RISK QUESTIONS: Secondary Osteoporosis: RISK FACTORS HISTORY OF: Family History of Osteoporosis: YES Active: YES Postmenopausal woman: OVER 50 MEDICATIONS: Prednisone or other steroids: How Long: Thyroid Medications: Which medication: How Long: Osteoporosis Medications: Which medication: How Long: Additional Medications: SAVASA, METOPROLOL, LOSARTIN, NITRO NEEDED Additional History: EXAM MEASUREMENTS: Bone mineral densitometry was performed using the [employer] System. Bone mineral density as measured about the Lumbar spine is: ----- L1-L4(G/cm2): 1.285 T Score Values are as follows: ----- L2: 1.1 ----- L3: 2.2 ----- L4: 0.6 ----- L1-L4: 0.9 Bone mineral density has: DECREASED -0.6 % since study of: 2013 Bone mineral density about the R hip (g/cm2): 0.764 Bone mineral density about the L hip (g/cm2): 0.810 T Score values are as follows: -----R Neck: -2.0 -----L Neck: -1.6 -----R Total: -1.3 -----L Total: -0.7 Bone mineral density has: INCREASED 0.8 % since study of: 2013 IMPRESSION: Normal (Values between +1 and -1 indicate normal bone mass). Consider repeating this study in 5 year s or sooner if there is some new clinical indication. NOTE: T-SCORE=SD OF THE YOUNG ADULT MEAN.
--- NOTE | 2017-11-23 07:28 | MM ---
Reason for exam: screening (asymptomatic). Last mammogram was performed 2 years and 5 months ago. History: Patient is postmenopausal. Physical Findings: A clinical breast exam by your physician is recommended on an annual basis and results should be correlated with mammographic findings. MG 3D Screening Mammo W/Cad Bilateral CC and MLO view(s) were taken. Prior study comparison: June 30, 2015, bilateral MG 3d screening mammo w/cad. March 13, 2014, bilateral MG screening mammo w CAD. No suspicious abnormality. Stable left upper outer quadrant focal asymmetry back to 2013. No significant changes when compared with prior studies. ASSESSMENT: Benign, BI-RAD 2 RECOMMENDATION: Routine screening mammogram of both breasts in 1 year.
== END | disposition home or self-care (01) ==
LOC: RADMAMWWP 06:48
PROVIDERS: ATTEND Family Medicine
DX: Z12.31 Encounter for screening mammogram for malignant neoplasm of breast (principal); M85.80 Other specified disorders of bone density and structure, unspecified site
CPT/HCPCS: 77063; 77067; 77080

== ENCOUNTER → 2017-12-09 | Outpatient (CLI) | payer MEDICARE | END | disposition home or self-care (01) | LOC: LABWHC1 07:53 | PROVIDERS: ATTEND Obstetrics & Gynecology | DX: N94.9 Unspecified condition associated with female genital organs and menstrual cycle (principal) | CPT/HCPCS: 36415; 86304 ==

== ENCOUNTER → 2018-02-08 | Outpatient (CLI) | payer MEDICARE ==
--- NOTE | 2018-02-08 14:59 | XR ---
Right knee HISTORY: Right knee pain 3 views of the right knee Bone mineralization and alignment are maintained. Joint space loss especially in the medial compartme nt is marginal spurring and also at the patellofemoral joint. Suprapatellar increased density is pres ent. Findings are suggestive of joint effusion. IMPRESSION: Osteoarthritis.
== END | disposition home or self-care (01) ==
LOC: RADXRMAIN 14:24
PROVIDERS: ATTEND Family Medicine
DX: M17.11 Unilateral primary osteoarthritis, right knee (principal)

== ENCOUNTER → 2018-03-13 | Outpatient (CLI) | payer MEDICARE ==
--- NOTE | 2018-03-13 12:52 | US ---
EXAMINATION TYPE: US pelvis complete transvag DATE OF EXAM: 03/13/2018 COMPARISON: 12/26/2012 CLINICAL HISTORY: N83.20 PREV OVARIAN CYST. Previous ovarian cysts, no pain TECHNIQUE: Transabdominal (TA). Transabdominal sonographic images of the pelvis were acquired. Tra nsvaginal sonographic images were medically necessary to better assess the following anatomy: Ovaries Date of LMP: GUIDE TRAVEL, EXAM MEASUREMENTS: Uterus: 9.3 x 5.9 x 3.7 cm Endometrial Stripe: 0.4 cm Right Ovary: 1.8 x 0.9 x 0.7 cm Left Ovary: 10.2 x 9.8 x 6.4 cm 1. Uterus: Anteverted Heterogenous. Multiple lesions seen throughout uterus. Largest on right = 2 .5 x 2.8 x 2.4 cm. Largest midline- 1.9 x 1.9 x 2.0 cm. Largest left = 2.0 x 2.1 x 2.1 cm. 2. Endometrium: wnl 3. Right Ovary: wnl 4. Left Ovary: Largest cystic appearing lesion seen, best seen transabdominally - 10.4 x 8.2 x 5.7 c m. Spectral, color and waveform doppler imaging shows good arterial and venous flow within the ovaries ; there is no evidence for ovarian torsion. 5. Bilateral Adnexa: wnl 6. Posterior cul-de-sac: no free fluid Cervix- Hypoechoic lesion seen = 1.7 x 1.8 x 1.2 cm. IMPRESSION: 1. Leiomyomatous change of the uterus. 2. Large left ovarian cystic lesion has enlarged since prior study. Continued follow-up is advised.
== END | disposition home or self-care (01) ==
LOC: RADUSWWP 10:53
PROVIDERS: ATTEND Obstetrics & Gynecology
DX: N83.202 Unspecified ovarian cyst, left side (principal); D25.9 Leiomyoma of uterus, unspecified
CPT/HCPCS: 76830; 76856

== ENCOUNTER → 2018-09-25 | Outpatient (CLI) | payer MEDICARE ==
[2018-09-25 11:32] LABS: Blood Urea Nitrogen 28 mg/dL (7-17)
--- NOTE | 2018-09-25 14:59 | CT ---
EXAMINATION TYPE: CT angio thor/abd pel aorta DATE OF EXAM: 09/25/2018 COMPARISON: CT chest December 20, 2012. CT abdomen pelvis December 16, 2016. HISTORY: Thoracic aortic aneurysm without mention of rupture CT DLP: 1523.10 mGycm. Automated Exposure Control for Dose Reduction was Utilized. CONTRAST: CTA scan of the thorax, abdomen and pelvis is performed without oral and without and with IV Contrast , patient injected with 100 ml mL of Isovue 370. FINDINGS: VASCULAR: There is satisfactory enhancement of central pulmonary artery and branches. Ascending aorta measures up to 4.0 cm diameter on axial image 17, not significantly changed from 2013 CT. There is n ormal three-vessel origin from aortic arch without significant plaque or stenosis. There is mild calc ified plaque in the descending thoracic aorta. There is patent celiac artery, SMA, bilateral single r enal arteries, and BALA. There is no significant plaque or stenosis in iliac arteries bilaterally. The re is no significant plaque or stenosis in femoral arteries in the groin region with satisfactory bif urcation. No additional aneurysm is evident. No linear hypodensity or dissection is seen. LUNGS: The lungs are grossly clear, there is no concerning parenchymal mass or nodule identified. T here is no pleural effusion or pneumothorax seen. The tracheobronchial tree is patent. MEDIASTINUM: There are no greater than 1 cm hilar or mediastinal lymph nodes. No cardiomegaly or pe ricardial effusion is seen. OTHER: No additional significant abnormality is seen. LIVER/GB: Interval cholecystectomy. PANCREAS: No significant abnormality is seen. SPLEEN: No significant abnormality is seen. ADRENALS: Low dense thickening to left adrenal gland favors benign hyperplasia. KIDNEYS: No significant abnormality is seen. BOWEL: No significant abnormality is seen. GENITAL ORGANS: Anteverted uterus is redemonstrated. Some calcifications along posterior right margin with lobulation likely reflects subserosal fibroid. Scattered pelvic phleboliths are seen. Along the anterior superior margin of the uterus extending to left of midline is persistent 8.0 x 5.6 cm low d ense mass presumed ovarian neoplasm axial image 95 no significant change in size or appearance from [address] suggesting benign etiology.. LYMPH NODES: No greater than 1cm abdominal or pelvic lymph nodes are appreciated. OSSEOUS STRUCTURES: Multilevel spurring in the thoracolumbar spine. Multilevel facet arthropathy mid to lower lumbar spine. OTHER: No significant additional abnormality is seen. IMPRESSION: 1. Stable 4.0 cm ascending aortic aneurysm unchanged from 2013 CT. No new or additional aneurysm evid ent. 2. Stable 8.0 cm low dense pelvic mass or presumed benign left ovarian cystic neoplasm given interval stability from 2017 study.
== END | disposition home or self-care (01) ==
LOC: RADCTMAIN 10:40
PROVIDERS: ATTEND Internal Medicine Clinical Cardiac Electrophysiology
DX: I71.2 Thoracic aortic aneurysm, without rupture (principal)
CPT/HCPCS: 82565; 84520; 71275; 36415; 74174; Q9967

== ENCOUNTER → 2019-07-13 | Outpatient (CLI) | payer MEDICARE ==
--- NOTE | 2019-07-16 11:32 | MM ---
Reason for exam: screening (asymptomatic). Last mammogram was performed 1 year and 8 months ago. History: Patient is postmenopausal. Physical Findings: A clinical breast exam by your physician is recommended on an annual basis and results should be correlated with mammographic findings. MG 3D Screening Mammo W/Cad Bilateral CC and MLO view(s) were taken. Prior study comparison: November 22, 2017, bilateral MG 3d screening mammo w/cad. June 30, 2015, bilateral MG 3d screening mammo w/cad. There are scattered fibroglandular densities. No suspicious abnormality. Stable left upper outer quadrant focal asymmetry at middle depth. No significant changes when compared with prior studies. ASSESSMENT: Benign, BI-RAD 2 RECOMMENDATION: Routine screening mammogram of both breasts in 1 year.
== END | disposition home or self-care (01) ==
LOC: RADMAMWWP 09:25
PROVIDERS: ATTEND Family Medicine
DX: Z12.31 Encounter for screening mammogram for malignant neoplasm of breast (principal)
CPT/HCPCS: 77063; 77067

== ENCOUNTER → 2021-06-04 | Outpatient (CLI) | payer MEDICARE ==
--- NOTE | 2021-06-04 15:16 | XR ---
EXAM TYPE: LUMBAR SPINE X RAY SERIES COMPARISON: NONE HISTORY: Pain TECHNIQUE: 4 views are submitted. FINDINGS: Alignment is anatomic. The pedicles are intact. The transverse processes are intact. There is diff use osteopenia with multilevel severe degenerative disc disease and facet arthropathy. Bilateral fora viraj encroachment at levels L2-S1 suspected. Surgical clips gallbladder fossa. IMPRESSION: 1. Diffuse osteopenia with severe multilevel degenerative disc disease and facet arthropathy. Multile christian foraminal encroachment suspected consider follow-up MRI.
== END | disposition home or self-care (01) ==
LOC: RADXRMAIN 14:47
PROVIDERS: ATTEND Family Medicine
DX: M51.16 Intervertebral disc disorders with radiculopathy, lumbar region (principal); M85.88 Other specified disorders of bone density and structure, other site; M47.26 Other spondylosis with radiculopathy, lumbar region
CPT/HCPCS: 72100

== ENCOUNTER → 2021-10-22 | Outpatient (CLI) | payer MEDICARE ==
--- NOTE | 2021-10-22 15:22 | XR ---
EXAMINATION TYPE: XR knee complete LT DATE OF EXAM: 10/22/2021 COMPARISON: NONE HISTORY: Pain TECHNIQUE: Three views are submitted. FINDINGS: Severe narrowing of the medial compartment of the knee joint with hypertrophic spurring and of the pa tellofemoral joint. Diffuse osteopenia. Small amount of fluid in the suprapatellar bursa.. Osseous s tructures are intact. No acute fracture seen. IMPRESSION: 1. No acute fracture or dislocation. 2. Severe osteoarthritis.
== END | disposition home or self-care (01) ==
LOC: RADXRMAIN 14:53
PROVIDERS: ATTEND Family Medicine
DX: M17.12 Unilateral primary osteoarthritis, left knee (principal)

== ENCOUNTER → 2022-12-09 | Outpatient (CLI) | payer MEDICARE ==
--- NOTE | 2022-12-09 12:56 | CT ---
EXAMINATION TYPE: CT abdomen pelvis wo con CT DLP: 1085 mGycm, Automated exposure control for dose reduction was used. DATE OF EXAM: 12/09/2022 12:42 PM COMPARISON: CT abdomen pelvis most recent from 09/25/2018 CLINICAL INDICATION:Female, 82 years old with history of R31.0 gross hematuria; flank pain, hematuria TECHNIQUE: Axial CT of the abdomen and pelvis. Sagittal and coronal reformats were created on a [employer] workstation. Contrast used: mL of , (none if empty) Oral contrast used: without Oral Contrast (none if empty) FINDINGS: LOWER CHEST: Unremarkable ABDOMEN LIVER: Unremarkable GALLBLADDER AND BILE DUCTS: The gallbladder is surgically absent. PANCREAS: Unremarkable. SPLEEN: Unremarkable. ADRENAL GLANDS: Unremarkable. KIDNEYS AND URETERS: Left renal pelvis calcifications opacification with obstruction of at least a co uple of the calyces. No right renal calculus or obstructive uropathy. PELVIS BLADDER: Unremarkable REPRODUCTIVE: Large left ovarian cyst which extends across midline. This measures up tor 10.7 x 7.4 x 9.2 cm degenerating fibroid changes of the uterus. ABDOMEN & PELVIS STOMACH AND BOWEL: No evidence of bowel obstruction. The appendix is normal. PERITONEUM/RETROPERITONEUM: No evidence of pneumoperitoneum or free fluid. VASCULATURE: Mild atherosclerotic calcifications are present throughout the abdominal aorta and its b ranches. No evidence of aortic aneurysm. MUSCULOSKELETAL: No acute osseous abnormalities. Moderate disc degeneration changes are present throu ghout the thoracolumbar spine. LYMPH NODES: No gross evidence for lymphadenopathy. SOFT TISSUE/ABDOMINAL WALL: Unremarkable IMPRESSION: 1. Left renal pelvis sinus calculus which may be obstructing a couple calyces measuring up to 11 mm. No evidence for ureteral calculus or hydronephrosis. Visualized portions of the bladder relatively u nremarkable. 2. Large left ovarian cyst measuring up to 10.7 cm. This should be evaluated with pelvic ultrasound if not recently performed on a nonemergent basis. This may be minimally bigger from 2019 evaluation s lightly limited given differences in cyst orientation. 3. Fibroid uterus.
== END | disposition home or self-care (01) ==
LOC: RADCTMAIN 12:10
PROVIDERS: ATTEND Family Medicine
DX: N83.202 Unspecified ovarian cyst, left side (principal); D25.9 Leiomyoma of uterus, unspecified; N20.0 Calculus of kidney; R31.0 Gross hematuria
CPT/HCPCS: 74176

== ENCOUNTER 2023-02-03 02:29 | Emergency (ER) | payer MEDICARE ==
[2023-02-03] MEDS ORDERED: ONDANSETRON 4 MG/2 ML VIAL IVP STA (03:09)
[2023-02-03] MEDS ORDERED: MORPHINE SULFATE 4 MG/ML SYRINGE IV STA (03:09)
[2023-02-03] MEDS ORDERED: SODIUM CHLORIDE 0.9% 1,000 ML IV STA (03:09)
[2023-02-03 04:05] LABS: Basophils % (A) 0 %; Eosinophils # (A) 0.1 k/uL (0-0.7); Eosinophils % (A) 1 %; HCT 46.9 % (34.0-46.0); HGB 15.6 gm/dL (11.4-16.0); Lymphocytes # (A) 2.3 k/uL (1.0-4.8); Lymphocytes % (A) 17 %; MCH 31.2 pg (25.0-35.0); MCHC 33.3 g/dL (31.0-37.0); MCV 93.7 fL (80.0-100.0); Mean Platelet Volume 7.9; Monocytes # (A) 0.6 k/uL (0-1.0); Monocytes % (A) 4 %; Neutrophils # (A) 10.7 k/uL (1.3-7.7); Neutrophils % (A) 77 %; Platelet Count 254 k/uL (150-450); RDW 13.5 % (11.5-15.5); WBC 13.8 k/uL (3.8-10.6)
[2023-02-03 04:14] LABS: INR 0.9 (<1.2); Partial Thromboplastin Time 22.6 sec (22.0-30.0); Prothrombin Time 9.8 sec (9.0-12.0)
[2023-02-03 04:16] LABS: ALT 20 U/L (4-34); AST 22 U/L (14-36); African American GFR (CKD) 83 (>60 ml/min/1.73 sqM); Albumin 4.2 g/dL (3.5-5.0); Alkaline Phosphatase 114 U/L (38-126); Anion Gap 9 mmol/L; Blood Urea Nitrogen 21 mg/dL (7-17); Calcium 9.6 mg/dL (8.4-10.2); Carbon Dioxide 25 mmol/L (22-30); Chloride 102 mmol/L (98-107); Glucose 125 mg/dL (74-99); Lipase 65 U/L (23-300); Magnesium 2.3 mg/dL (1.6-2.3); Non-African American GFR(CKD) 72 (>60 ml/min/1.73 sqM); Phosphorus 2.9 mg/dL (2.5-4.5); Potassium 4.6 mmol/L (3.5-5.1); Sodium 136 mmol/L (137-145); Total Bilirubin 0.5 mg/dL (0.2-1.3); Total Protein 7.4 g/dL (6.3-8.2)
--- NOTE | 2023-02-03 04:19 | ED ---
Abdominal Pain HPI - General Source: patient Mode of arrival: ambulatory Limitations: no limitations <Ellis Mabry - Last Filed: 02/03/23 04:18> - General Source: patient, RN notes reviewed Mode of arrival: ambulatory Limitations: no limitations <Gabe Salter - Last Filed: 02/03/23 08:15> - General Chief Complaint: Abdominal Pain Stated Complaint: Pain in left side Time Seen by Provider: 02/03/23 03:09 - History of Present Illness Initial Comments: Patient originally seen by Dr. Christopher, endorsed to myself for follow-up regarding computed tomography scan. Patient reevaluated and resting comfortably in bed. Patient has been dealing several days with discomfort left flank. Patient sees of our with urology for this. Patient has received morphine and Toradol. Patient did have great relief of symptoms with Toradol. Patient is currently symptom-free at this time. (Gabe Salter) - Related Data Home Medications Medication Instructions Recorded Confirmed Multivitamins, Thera [Multivitamin 1 tab PO DAILY 10/09/15 02/03/23 (formulary)] Cholecalciferol [Vitamin D3 (25 1,000 unit PO DAILY 07/28/16 02/03/23 Mcg = 1000 Iu)] Potassium 99 mg PO DAILY 07/28/16 02/03/23 atenoloL 25 mg PO BID 12/16/16 02/03/23 Eliquis (Unknown Dose) 1 tab PO BID 02/03/23 02/03/23 Magnesium Oxide [Magnesium] 500 mg PO DAILY 02/03/23 02/03/23 lisinopriL [Zestril] 2.5 mg PO HS 02/03/23 02/03/23 Previous Rx's Medication Instructions Recorded Ketorolac [Toradol] 10 mg PO Q6HR PRN #15 tab 02/03/23 Metoclopramide HCl [Reglan] 10 mg PO Q6HR PRN #15 tablet 02/03/23 Allergies Allergy/AdvReac Type Severity Reaction Status Date / Time No Known Allergies Allergy Verified 02/03/23 02:31 Review of Systems ROS Other: All systems not noted in ROS Statement are negative. <Ellis Mabry - Last Filed: 02/03/23 04:18> ROS Other: All systems not noted in ROS Statement are negative. <Gabe Salter - Last Filed: 02/03/23 08:15> ROS Statement: Those systems with pertinent positive or pertinent negative responses have been documented in the HPI. Past Medical History Past Medical History: Atrial Fibrillation, Hypertension Additional Past Medical History / Comment(s): Pt states she had rapid heart beat yrs ago and has had several tests run but never found out what it was. She also had anemia in the past. History of Any Multi-Drug Resistant Organisms: None Reported Past Surgical History: Heart Catheterization Additional Past Surgical History / Comment(s): Cardiac cath yrs ago-normal, uterine polypectomies-benign, colonoscopy-normal. Past Anesthesia/Blood Transfusion Reactions: No Reported Reaction Additional Past Anesthesia/Blood Transfusion Reaction / Comment(s): Pt has received blood in past without reaction. Past Psychological History: No Psychological Hx Reported Smoking Status: Never smoker Past Alcohol Use History: None Reported Past Drug Use History: None Reported - Past Family History Father Family Medical History: Myocardial Infarction ([place]) Additional Family Medical History / Comment(s): Father of a [place] at age 86yrs. Mother Family Medical History: Cancer Additional Family Medical History / Comment(s): Mother had uterine cancer with surgery. She at age 89yrs. <Ellis Mabry - Last Filed: 02/03/23 04:18> General Exam Limitations: no limitations <Ellis Mabry - Last Filed: 02/03/23 04:18> Limitations: no limitations General appearance: alert, in no apparent distress Head exam: Present: normocephalic Eye exam: Present: normal appearance Neurological exam: Present: alert Psychiatric exam: Present: normal affect, normal mood Skin exam: Present: normal color <Gabe Salter - Last Filed: 02/03/23 08:15> Course <Ellis Mabry - Last Filed: 02/03/23 04:18> Vital Signs 02/03/23 02/03/23 02/03/23 02:31 04:45 06:00 Temperature 98.3 F Pulse Rate 65 61 58 L Respiratory 18 16 18 Rate Blood Pressure 145/78 155/78 131/61 O2 Sat by Pulse 98 96 93 L Oximetry 02/03/23 07:45 Temperature 97.1 F L Pulse Rate 57 L Respiratory 18 Rate Blood Pressure 111/65 O2 Sat by Pulse 94 L Oximetry - Reevaluation(s) Reevaluation #4: 02/03/23 04:19 Was pt. sent in by a medical professional or institution (OSMANI Ravi, TECHNICAL SOLUTIONS CONSULTANT, urgent ca re, hospital, or group home...) When possible be specific @ -no Did you speak to anyone other than the patient for history (EMS, parent, family, police, friend...)? What history was obtained from this source @ -no Did you review nursing and triage notes (agree or disagree)? Why? @ -agree Are old charts reviewed (outside hosp., previous admission, EMS record, old EKG, old radiological studies, urgent care reports/EKG's, group home records)? Report findings @ -yes Differential Diagnosis (chest pain, altered mental status, abdominal pain women, abdominal pain men, vaginal bleeding, weakness, fever, dyspnea, syncope, headache, dizziness, GI bleed, back pain, seizure, CVA, palpatations, mental health, musculoskeletal)? @ -prior EKG interpreted by me (3pts min.). @ -yes X-rays interpreted by me (1pt min.). @ -yes CT interpreted by me (1pt min.). @ -no U/S interpreted by me (1pt. min.). @ -no What testing was considered but not performed or refused? (CT, X-rays, U/S, labs)? Why? @ -none What meds were considered but not given or refused? Why? @ -none Did you discuss the management of the patient with other professionals (professionals i.e. OSMANI Ravi, TECHNICAL SOLUTIONS CONSULTANT, lab, RT, psych nurse, elementary school social worker, electrician apprentice powerhouse, teacher, commercial credit officer, housing case manager)? Give summary @ -no Was smoking cessation discussed for >3mins.? @ -no Was critical care preformed (if so, how long)? @ -no Were there social determinants of health that impacted care today? How? (Homelessness, low income, unemployed, alcoholism, drug addiction, transportation, low edu. Level, literacy, decrease access to med. care, assisted, rehab)? @ -none Was there de-escalation of care discussed even if they declined (Discuss DNR or withdrawal of care, Hospice)? DNR status @ -no What co-morbidities impacted this encounter? (DM, HTN, Smoking, COPD, CAD, Cancer, CVA, ARF, Chemo, Hep., AIDS, mental health diagnosis, sleep apnea, morbid obesity)? @ -none Was patient admitted / discharged? Hospital course, mention meds given and route, prescriptions, significant lab abnormalities, going to OR and other pertinent info. @ - Undiagnosed new problem with uncertain prognosis? @ -no Drug Therapy requiring intensive monitoring for toxicity (Heparin, Nitro, Insulin, Cardizem)? @ -no Were any procedures done? @ -no Diagnosis/symptom? @ - Acute, or Chronic, or Acute on Chronic? @ -Acute Uncomplicated (without systemic symptoms) or Complicated (systemic symptoms)? @ -Complicated Side effects of treatment? @ -no Exacerbation, Progression, or Severe Exacerbation? @ -exacerbation Poses a threat to life or bodily function? How? (Chest pain, [place], [place], pneumonia, PE, COPD, DKA, ARF, appy, cholecystitis, CVA, Diverticulitis, Homicidal, Suicidal, threat to staff... and all critical care pts) @ -yes (Ellis Mabry) Reevaluation #5: 02/03/23 04:19 Differential Abdominal Pain Women: Appendicitis, Cholecystitis, diverticulosis, ischemic bowel, pancreatitis, hepatitis, UTI, gastroenteritis, AAA, incarcerated hernia, bowel obstruction, constipation, inflammatory bowel, hepatitis, peptic ulcer disease, splenic infarction, perforated viscus, vulvitis, ovarian torsion, PID, kidney stone, placenta abruption, this is not meant to be an all-inclusive list (Ellis Mabry) Medical Decision Making - Lab Data Result diagrams: 02/03/23 03:53 02/03/23 03:53 - EKG Data -: EKG Interpreted by Me (EKG is sinus 60 [address] 177 QRS 85 QTC 420) <Ellis Mabry - Last Filed: 02/03/23 04:18> - Lab Data Result diagrams: 02/03/23 03:53 02/03/23 03:53 <Gabe Salter - Last Filed: 02/03/23 08:15> - Medical Decision Making Computed tomography scan abdomen and pelvis interpreted by myself does show left pelvic calculus with associated hydronephrosis. This was discussed with urology Dr. Cassidy. Patient and family updated on results and plan. Case was discussed with Dr. Cassidy who does recommend discharge and follow-up. Diagnosis: Left ureterolithiasis Acute (Gabe Salter) - Lab Data Lab Results 02/03/23 02/03/23 02/03/23 Range/Units 03:53 03:53 03:53 WBC 13.8 H (3.8-10.6) k/uL RBC 5.00 (3.80-5.40) m/uL Hgb 15.6 (11.4-16.0) gm/dL Hct 46.9 H (34.0-46.0) % MCV 93.7 (80.0-100.0) fL MCH 31.2 (25.0-35.0) pg MCHC 33.3 (31.0-37.0) g/dL RDW 13.5 (11.5-15.5) % Plt Count 254 (150-450) k/uL MPV 7.9 Neutrophils % 77 % Lymphocytes % 17 % Monocytes % 4 % Eosinophils % 1 % Basophils % 0 % Neutrophils # 10.7 H (1.3-7.7) k/uL Lymphocytes # 2.3 (1.0-4.8) k/uL Monocytes # 0.6 (0-1.0) k/uL Eosinophils # 0.1 (0-0.7) k/uL Basophils # 0.0 (0-0.2) k/uL PT 9.8 (9.0-12.0) sec INR 0.9 (<1.2) APTT 22.6 (22.0-30.0) sec Sodium 136 L (137-145) mmol/L Potassium 4.6 (3.5-5.1) mmol/L Chloride 102 (98-107) mmol/L Carbon Dioxide 25 (22-30) mmol/L Anion Gap 9 mmol/L BUN 21 H (7-17) mg/dL Creatinine 0.79 (0.52-1.04) mg/dL Est GFR (CKD-EPI)AfAm 83 (>60 ml/min/1.73 sqM) Est GFR (CKD-EPI)NonAf 72 (>60 ml/min/1.73 sqM) Glucose 125 H (74-99) mg/dL Lactic Ac Sepsis Rflx Plasma Lactic Acid Soham (0.7-2.0) mmol/L Calcium 9.6 (8.4-10.2) mg/dL Phosphorus 2.9 (2.5-4.5) mg/dL Magnesium 2.3 (1.6-2.3) mg/dL Total Bilirubin 0.5 (0.2-1.3) mg/dL AST 22 (14-36) U/L ALT 20 (4-34) U/L Alkaline Phosphatase 114 (38-126) U/L Troponin I (0.000-0.034) ng/mL Total Protein 7.4 (6.3-8.2) g/dL Albumin 4.2 (3.5-5.0) g/dL Lipase 65 (23-300) U/L 02/03/23 02/03/23 02/03/23 Range/Units 03:53 03:53 04:22 WBC (3.8-10.6) k/uL RBC (3.80-5.40) m/uL Hgb (11.4-16.0) gm/dL Hct (34.0-46.0) % MCV (80.0-100.0) fL MCH (25.0-35.0) pg MCHC (31.0-37.0) g/dL RDW (11.5-15.5) % Plt Count (150-450) k/uL MPV Neutrophils % % Lymphocytes % % Monocytes % % Eosinophils % % Basophils % % Neutrophils # (1.3-7.7) k/uL Lymphocytes # (1.0-4.8) k/uL Monocytes # (0-1.0) k/uL Eosinophils # (0-0.7) k/uL Basophils # (0-0.2) k/uL PT (9.0-12.0) sec INR (<1.2) APTT (22.0-30.0) sec Sodium (137-145) mmol/L Potassium (3.5-5.1) mmol/L Chloride (98-107) mmol/L Carbon Dioxide (22-30) mmol/L Anion Gap mmol/L BUN (7-17) mg/dL Creatinine (0.52-1.04) mg/dL Est GFR (CKD-EPI)AfAm (>60 ml/min/1.73 sqM) Est GFR (CKD-EPI)NonAf (>60 ml/min/1.73 sqM) Glucose (74-99) mg/dL Lactic Ac Sepsis Rflx Y Plasma Lactic Acid Soham 2.5 H* (0.7-2.0) mmol/L Calcium (8.4-10.2) mg/dL Phosphorus (2.5-4.5) mg/dL Magnesium (1.6-2.3) mg/dL Total Bilirubin (0.2-1.3) mg/dL AST (14-36) U/L ALT (4-34) U/L Alkaline Phosphatase (38-126) U/L Troponin I <0.012 (0.000-0.034) ng/mL Total Protein (6.3-8.2) g/dL Albumin (3.5-5.0) g/dL Lipase (23-300) U/L Disposition <Ellis Mabry - Last Filed: 02/03/23 04:18> Is patient prescribed a controlled substance at d/c from ED?: No Time of Disposition: 08:14 <Gabe Salter - Last Filed: 02/03/23 08:15> Clinical Impression: Ureterolithiasis Disposition: HOME SELF-CARE Condition: Stable Instructions (If sedation given, give patient instructions): Kidney Stones (ED) Additional Instructions: Please do follow-up with Dr. Cassidy or dr. maxwell in the next couple days for recheck. Return for fever, increased pain, vomiting, worsening or changing symptoms or any other concerns. Prescription has been sent to pharmacy. Prescriptions: Metoclopramide HCl [Reglan] 10 mg PO Q6HR PRN #15 tablet PRN Reason: Nausea Ketorolac [Toradol] 10 mg PO Q6HR PRN #15 tab PRN Reason: Pain Referrals: Lawrence Marinelli DO [Primary Care Provider] - 1-2 days
[2023-02-03] MEDS ORDERED: KETOROLAC 15 MG/ML 1 ML VIAL IVP STA (04:21)
[2023-02-03 07:01] VITALS: RESP 18
--- NOTE | 2023-02-03 07:22 | CT ---
EXAMINATION TYPE: CT abdomen pelvis wo con DATE OF EXAM: 02/03/2023 COMPARISON: 12/09/2022 HISTORY: Pain Examination of the solid and hollow viscera is limited given the lack of contrast. FINDINGS: LUNG BASES: No evidence for nodule. No evidence for infiltrate. LIVER/GB: The gallbladder is surgically absent. No space-occupying hepatic lesion. PANCREAS: No pancreatic mass identified. No inflammatory process seen. SPLEEN: No evidence for splenomegaly. No intrasplenic lesions seen. ADRENALS: No adrenal nodules identified. No evidence for thickening. KIDNEYS: No evidence for renal mass. There is a 1.2 cm calculus in the region of the left renal pelvi s. There is moderate left-sided hydronephrosis. Left renal edema and mild perinephric stranding. Stab le calcification overlying the left psoas is likely outside of the ureter as it is unchanged dating b ack to 2017. Bowel: The appendix has a normal appearance. No evidence of bowel obstruction. No inflammatory proces s. Lymph nodes: No evidence for adenopathy greater than 1 cm. Abdominal aorta: Atheromatous changes seen. No evidence for aneurysm. Genital organs: Calcified uterine leiomyomata noted. Midline cystic mass anterior to the uterus measu res 9.4 x 8.5 cm versus 10.8 x 7.5 cm previously. Other: No significant abnormality. IMPRESSION: 1.There is a 1.2 cm calculus in the region of the left renal pelvis. There is moderate left-sided hyd ronephrosis. Left renal edema and mild perinephric stranding. 2. Cystic mass anterior to the uterus is slightly smaller in size. Correlate with ultrasound.
--- NOTE | 2023-02-03 09:08 | XR ---
EXAMINATION TYPE: XR abdomen 1V DATE OF EXAM: 02/03/2023 COMPARISON: NONE HISTORY: Pain TECHNIQUE: One view abdominal series FINDINGS: The osseous structures are intact. The bowel gas pattern is nonspecific. There is a calcification ov erlying the left kidney measuring 1 cm. No suspicious calcifications overlying the right kidney. Calcifications the pelvis is nonspecific but most likely related to uterine fibroid. Degenerative changes of the spine. 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 Punctate calcifications in the pelvis are likely vascular. IMPRESSION: 1. 1 cm left renal calculus
[2023-02-03 10:34] VITALS: BP 101/52; PULSE 63; TEMP 97.4
== END 2023-02-03 10:34 | disposition home or self-care (01) ==
LOC: EC 02:29
DX: N20.1 Calculus of ureter (principal); I10 Essential (primary) hypertension; I48.91 Unspecified atrial fibrillation; Z79.899 Other long term (current) drug therapy
CPT/HCPCS: 36415; 93005; 80053; 83605; 83690; 83735; 84100; 84484; 85025; 85610; 85730; 74018; 74176; 99285; 96374; 96375 ×2; 96361; J2270; J2405; J1885

== ENCOUNTER 2023-02-16 07:44 | Day surgery (SDC) | payer MEDICARE ==
[2023-02-09 15:47] VITALS: BMI 34.2
[2023-02-16] MEDS ORDERED: HYDROmorphone 0.5 MG/0.5 ML SYRINGE IVP PRN (07:50)
[2023-02-16] MEDS ORDERED: ONDANSETRON 4 MG/2 ML VIAL IVP ONE (07:50)
[2023-02-16] MEDS ORDERED: LIDOCAINE 1% (10MG/ML) FOR IV START INTRADERMA PRN (07:50)
[2023-02-16] MEDS ORDERED: LACTATED RINGERS 1,000 ML IV SCH (07:50)
[2023-02-16] MEDS ORDERED: MIDAZOLAM 2 MG/2 ML VIAL IV PRN (07:50)
[2023-02-16] MEDS ORDERED: DEXAMETHASONE SOD PHOSPHATE 4 MG/ML 1 ML VIAL IV ONE (07:50)
--- NOTE | 2023-02-16 08:16 | XR ---
EXAMINATION TYPE: XR KUB DATE OF EXAM: 02/16/2023 COMPARISON: 02/03/2023 HISTORY: Preop TECHNIQUE: One view abdominal series FINDINGS: The osseous structures are intact. The bowel gas pattern is nonspecific. Hypertrophic degenerative c hanges in the spine. Surgical clips pelvis and right upper quadrant. Throughout the hips and SI joint s. Large calcification is likely related to uterine fibroid. Additional calcifications pelvis. Vascul ar. Calcification overlying the left kidney is partially obscured by bowel content. IMPRESSION: 1. Stable left upper quadrant calcification partially obscured by bowel content measuring approximate ly 1.2 cm.
[2023-02-16] MEDS ORDERED: MIDAZOLAM 2 MG/2 ML VIAL ONE (09:33)
[2023-02-16] MEDS ORDERED: PROPOFOL 10 MG/ML 20 ML VIAL IV ONE (09:33)
[2023-02-16] MEDS ORDERED: LIDOCAINE 2% INJ 20 MG/ML (2 ML VIAL) ONE (09:33)
[2023-02-16] MEDS ORDERED: ePHEDrine 50 MG/ML 1 ML VIAL ONE (09:33)
[2023-02-16] MEDS ORDERED: fentaNYL (PF) 50 MCG/ML 2 ML AMP ONE (09:33)
--- NOTE | 2023-02-16 09:43 | P.HPIHPCON ---
History of Present Illness H&P Date: 02/16/23 Chief Complaint: left renal stone This is an 82-year-old female history of a 1.2 cm left-sided renal pelvis stone, she is symptomatic from her stone causing intermittent pain, and gross hematuria. Option of left-sided ureteroscopy with holmium laser versus ESWL was discussed with her in detail. Risk benefits and rationale of doing both surgery were discussed in detail. She agreed to proceed with left-sided ureteroscopy and holmium laser. Aware of the risk which include but not limited to bleeding, infection, injury to the ureter. Risk of anesthesia was also discussed. She understood all the risk and agreed to proceed Consent for Procedure: I have explained the operation/procedure to the patient, including the risks, benefits, side effects, alternative therapies (including not receiving the proposed treatment or service), the likelihood of the patient achieving his/her goals, and potential recuperation problems for the procedure/sedation/analgesia, as well as any blood products, if indicated. I also explained to the patient the risks, benefits and side effects of the alternatives, as well as the risks related to not receiving the proposed procedure, care, treatment, or services. Past Medical History Past Medical History: Atrial Fibrillation, Hypertension Additional Past Medical History / Comment(s): Pt states she had rapid heart beat yrs ago and has had several tests run but never found out what it was. She also had anemia in the past. Kidney stones History of Any Multi-Drug Resistant Organisms: None Reported Past Surgical History: Heart Catheterization Additional Past Surgical History / Comment(s): Cardiac cath yrs ago-normal, uterine polypectomies-benign, colonoscopy-normal. Past Anesthesia/Blood Transfusion Reactions: No Reported Reaction Additional Past Anesthesia/Blood Transfusion Reaction / Comment(s): Pt has received blood in past without reaction. Smoking Status: Never smoker - Past Family History Father Family Medical History: Myocardial Infarction ([place]) Additional Family Medical History / Comment(s): Father of a [place] at age 86yrs. Mother Family Medical History: Cancer Additional Family Medical History / Comment(s): Mother had uterine cancer with surgery. She at age 89yrs. Medications and Allergies Home Medications Medication Instructions Recorded Confirmed Type Multivitamins, Thera [Multivitamin 1 tab PO DAILY 10/09/15 02/09/23 History (formulary)] Cholecalciferol [Vitamin D3 (25 1,000 unit PO DAILY 07/28/16 02/09/23 History Mcg = 1000 Iu)] Potassium 99 mg PO DAILY 07/28/16 02/09/23 History atenoloL 25 mg PO BID 12/16/16 02/09/23 History Apixaban [Eliquis] 5 mg PO BID 02/03/23 02/09/23 History Ketorolac [Toradol] 10 mg PO Q6HR PRN #15 tab 02/03/23 02/09/23 Rx Magnesium Oxide [Magnesium] 500 mg PO DAILY 02/03/23 02/09/23 History lisinopriL [Zestril] 2.5 mg PO HS 02/03/23 02/09/23 History Allergies Allergy/AdvReac Type Severity Reaction Status Date / Time No Known Allergies Allergy Verified 02/09/23 15:27 Surgical - Exam Vital Signs Temp Pulse Resp BP Pulse Ox 97.2 F L 63 16 156/76 97 02/16/23 08:18 02/16/23 08:18 02/16/23 08:18 02/16/23 08:18 02/16/23 08:18 - General no distress, moderate pain - Eyes normal ocular movement, no pale - ENT normal nares, normal mucosa - Respiratory normal expansion, normal respiratory effort - Abdomen Abdomen: soft, non tender Assessment and Plan Assessment: OR for left-sided ureteroscopy, holmium laser lithotripsy, stone basketing and stent insertion
[2023-02-16] MEDS ORDERED: LACTATED RINGERS 1,000 ML IV ONE (10:10)
--- NOTE | 2023-02-16 11:28 | P.OP ---
Date of Procedure: 02/16/23 Preoperative Diagnosis: Left renal stone Postoperative Diagnosis: Same Procedure(s) Performed: Cystoscopy, left ureteroscopy, holmium laser lithotripsy, stone basketing and stent insertion Implants: 6-Citizen Of [place] by 26 cm stent in the left ureter Anesthesia: JOANA Surgeon: Rudi Coleman Estimated Blood Loss (ml): 10 Pathology: other (left renal stone) Condition: stable Disposition: PACU Indications for Procedure: This is an 82-year-old female history of a 1.2 cm left-sided renal pelvis stone, she is symptomatic from her stone causing intermittent pain, and gross hematuria. Option of left-sided ureteroscopy with holmium laser versus ESWL was discussed with her in detail. Risk benefits and rationale of doing both surgery were discussed in detail. She agreed to proceed with left-sided ureteroscopy and holmium laser. Aware of the risk which include but not limited to bleeding, infection, injury to the ureter. Risk of anesthesia was also discussed. She understood all the risk and agreed to proceed Operative Findings: Large stone impacted in the left lower pole calyx Description of Procedure: Patient brought to the operating room, general anesthesia was induced. She was prepped and draped in sterile fashion and placed in dorsal lithotomy position. Cystoscopy fitted with 21-Citizen Of [place] sheath was inserted per urethra, cystoscopy was performed which showed no abnormality within the bladder. Attention was then carried to the left ureteral orifice which was intubated with a sensor wire. Next a 1113 Citizen Of [place] access sheath was passed over the wire and into the proximal ureter. Next flexibile ureteroscope was inserted through the access sheath, renoscopy was performed which showed a large stone in the lower pole calyx. Using the holmium laser the stone was dusted, sizable fragments were removed using the stone basket. Repeat renoscopy showed no sizable stones or injury to the kidney. On fluoroscopy there is no radiopaque densities, pullback ureteroscopy was performed which showed no injury to the ureter or any ureteral stones. As ureteroscope was withdrawn, a sensor wire was advanced through. Next a ureteral stent was passed over the wire, the proximal curl was visualized on fluoroscopy and the distal curl was visualized using the cystoscope. The bladder was emptied at the end of the case. Patient tolerated the procedure was taken to recovery in stable condition
[2023-02-16 11:32] VITALS: TEMP 97.5
--- NOTE | 2023-02-16 11:37 | FL ---
EXAMINATION TYPE: FL guidance operating room DATE OF EXAM: 02/16/2023 HISTORY: Fluoroscopy time Total dose area product (DAP) in uGy*m?, mGy*cm? (or similar): 0.61334 IMPRESSION: 1. Fluoroscopy time.
[2023-02-16] MEDS ORDERED: KETOROLAC 15 MG/ML 1 ML VIAL IVP ONE (12:30)
[2023-02-16] MEDS ORDERED: HYDROmorphone 0.5 MG/0.5 ML SYRINGE IVP ONE (12:35)
[2023-02-16 13:16] VITALS: RESP 14
[2023-02-16 13:19] VITALS: BP 135/82; PULSE 65
== END 2023-02-16 15:50 | disposition home or self-care (01) ==
LOC: OR 07:44
PROVIDERS: ATTEND Urology
DX: N20.0 Calculus of kidney (principal); I48.91 Unspecified atrial fibrillation; I10 Essential (primary) hypertension; Z79.01 Long term (current) use of anticoagulants; Z79.899 Other long term (current) drug therapy; Z87.442 Personal history of urinary calculi
CPT/HCPCS: 74018; 52356; C2625; C1769; J2250; J1100; J0690; J2405; J3010; J1885; J2704; J1170; J2001; 82365

== ENCOUNTER → 2023-04-22 | Outpatient (CLI) | payer MEDICARE ==
--- NOTE | 2023-04-22 09:40 | BD ---
EXAMINATION TYPE: Axial Bone Density DATE OF EXAM: 04/22/2023 CLINICAL HISTORY: 82 years old Female. ICD-10 CODE: Z78.0 ASYMPTOMATIC MENOPAUSAL STATE Height: 63.2 Weight: 217 FRAX RISK QUESTIONS: nothing to note here RISK FACTORS HISTORY OF: Diet low in dairy products/other sources of calcium: yes Postmenopausal woman: yes, at 57 yrs old Lost more than 2 inches in height since high school: yes Hyperparathyroidism: no Adrenal Insufficiency: no MEDICATIONS: Additional Medications: bp meds, vit d Additional History: hypertension, EXAM MEASUREMENTS: Bone mineral densitometry was performed using the [employer] mobile System. Bone mineral density as measured about the Lumbar spine is: ----- L1-L4(G/cm2): 1.302 T Score Values are as follows: ----- L1: -0.2 ----- L2: 1.9 ----- L3: 2.4 ----- L4: -0.8 ----- L1-L4: 1.0 Z Score Values are as follows: ----- L1: 0.6 ----- L2: 2.6 ----- L3: 3.2 ----- L4: -0.1 ----- L1-L4: 1.7 Bone mineral density has: Increased 1.3% since study of: 11.22.2017 Bone mineral density about the R hip (g/cm2): 0.816 Bone mineral density about the L hip (g/cm2): 0.827 T Score values are as follows: -----R Neck: -0.6 -----L Neck: -1.8 -----R Total: -1.5 -----L Total: -1.4 Z Score values are as follows: -----R Neck: 0.9 -----L Neck: -0.3 -----R Total: -0.3 -----L Total: -0.2 Bone mineral density has: Decreased -6.3% since study of: 11.22.2017 FRAX%s: The graph provided illustrates a 13.2% chance for a major osteoporotic fx and a 3.4% chance f or the hips probability for fx in 10 years time. IMPRESSION: Osteopenia (T Score between -2.5 and -1). There is slightly increased risk of fracture and the patient may be considered for treatment. Re-Screen 2-5 years. NOTE: T-SCORE=SD OF THE YOUNG ADULT MEAN.
== END | disposition home or self-care (01) ==
LOC: RADBDWWP 08:22
PROVIDERS: ATTEND Family Medicine
DX: M85.852 Other specified disorders of bone density and structure, left thigh (principal); Z78.0 Asymptomatic menopausal state
CPT/HCPCS: 77080

== ENCOUNTER 2024-01-06 09:28 | Emergency (ER) | payer MEDICARE ==
[2024-01-06 10:03] VITALS: PULSE 56
--- NOTE | 2024-01-06 10:15 | ED ---
Headache HPI - General Chief Complaint: Headache Stated Complaint: Head pain/high blood pressure Time Seen by Provider: 01/06/24 09:41 Source: patient, RN notes reviewed Mode of arrival: ambulatory Limitations: no limitations - History of Present Illness Initial Comments: This is an 83-year-old female who presents to the emergency department for a headache and elevated blood pressure. States that she has had a dull right- sided headache for the last 1 to 2 weeks. This morning she took her blood pressure and it was in the 190s systolically. States that her blood pressure is usually in the 130s. Takes atenolol for her blood pressure. She took an extra dose this morning because of the elevation. States that she feels somewhat dizzy and nauseous with movement. Denies any chest pain or shortness of breath. - Related Data Home Medications Medication Instructions Recorded Confirmed atenoloL 25 mg PO BID 12/16/16 01/06/24 Apixaban [Eliquis] 5 mg PO BID 02/03/23 01/06/24 Aspirin EC [Ecotrin] 325 mg PO ONETIME 01/06/24 01/06/24 Allergies Allergy/AdvReac Type Severity Reaction Status Date / Time No Known Allergies Allergy Verified 01/06/24 10:37 Review of Systems ROS Statement: Those systems with pertinent positive or pertinent negative responses have been documented in the HPI. ROS Other: All systems not noted in ROS Statement are negative. Past Medical History Past Medical History: Atrial Fibrillation, Hypertension Additional Past Medical History / Comment(s): Pt states she had rapid heart beat yrs ago and has had several tests run but never found out what it was. She also had anemia in the past. Kidney stones History of Any Multi-Drug Resistant Organisms: None Reported Past Surgical History: Heart Catheterization Additional Past Surgical History / Comment(s): Cardiac cath yrs ago-normal, uterine polypectomies-benign, colonoscopy-normal. Past Anesthesia/Blood Transfusion Reactions: No Reported Reaction Additional Past Anesthesia/Blood Transfusion Reaction / Comment(s): Pt has received blood in past without reaction. Past Psychological History: No Psychological Hx Reported Smoking Status: Never smoker Past Alcohol Use History: None Reported Past Drug Use History: None Reported - Past Family History Father Family Medical History: Myocardial Infarction (NH) Additional Family Medical History / Comment(s): Father of a NH at age 86yrs. Mother Family Medical History: Cancer Additional Family Medical History / Comment(s): Mother had uterine cancer with surgery. She at age 89yrs. General Exam Limitations: no limitations General appearance: alert, in no apparent distress Head exam: Present: atraumatic, normocephalic, normal inspection Eye exam: Present: normal appearance, PERRL, EOMI. Absent: scleral icterus, conjunctival injection, periorbital swelling Respiratory exam: Present: normal lung sounds bilaterally. Absent: respiratory distress, wheezes, rales, rhonchi, stridor Cardiovascular Exam: Present: regular rate, normal rhythm, normal heart sounds. Absent: systolic murmur, diastolic murmur, rubs, gallop, clicks Neurological exam: Present: alert, oriented X3, CN II-XII intact Psychiatric exam: Present: normal affect, normal mood Skin exam: Present: warm, dry, intact, normal color. Absent: rash Course Vital Signs 01/06/24 01/06/24 01/06/24 09:33 10:02 12:07 Temperature 97.5 F L Pulse Rate 59 L 56 L 56 L Respiratory 18 16 16 Rate Blood Pressure 157/83 147/85 133/72 O2 Sat by Pulse 98 95 98 Oximetry 01/06/24 14:24 Temperature 97.6 F Pulse Rate 56 L Respiratory 18 Rate Blood Pressure 137/68 O2 Sat by Pulse 96 Oximetry Medical Decision Making - Medical Decision Making This is an 83 year old female who presents to the emergency department for headaches. Was pt. sent in by a medical professional or institution? @ -No Did you speak to anyone other than the patient for history? @ -No Did you review nursing and triage notes? @ -Yes, and I agree, it is accurate with regards to the patient's symptoms. Were old charts reviewed? @ -No Differential Diagnosis? @ -Differential Headache: Migraine, tension, cluster, carbon monoxide, central venous thrombosis, pension karma temporal arteritis, acute closure glaucoma, intercranial hemorrhage, mastoiditis, sinusitis, head injury, this is not meant to be an all-inclusive list. EKG interpreted by me (3pts min.)? @ -EKG interpreted by me demonstrating the following: Sinus bradycardia. Ventricular rate 56 bpm, W[place] interval 215 ms, QRS duration 94 ms, QTc 428 ms. X-rays interpreted by me (1pt min.)? @ -Chest x-ray obtained, my interpretation identifies no localized consolidations or infiltrates. CT interpreted by me (1pt min.)? @ -CT scan of the brain obtained. My interpretation identifies no evidence of an acute intracranial hemorrhage or mass effect. U/S interpreted by me (1pt. min.)? @ -Not obtained What testing was considered but not performed? (CT, X-rays, U/S, labs)? Why? @ -None What meds were considered but not given? Why? @ -None Did you discuss the management of the patient with other professionals? @ -No Did you reconcile home meds? @ -No Was smoking cessation discussed for >3mins.? @ -No Was critical care preformed (if so, how long)? @ -No Were there social determinants of health that impacted care today? How? (Homelessness, low income, unemployed, alcoholism, drug addiction, transportation, low edu. Level, literacy, decrease access to med. care, usp, rehab)? @ -No Was there de-escalation of care discussed even if they declined? (Discuss DNR or withdrawal of care, Hospice)? @ -No What co-morbidities impacted this encounter? (DM, HTN, Smoking, COPD, CAD, Cancer, CVA, Hep., AIDS, mental health diagnosis, sleep apnea, morbid obesity)? @ -A-fib, HTN Was patient admitted / discharged? @ -Discharged. Lab work unremarkable. COVID, influenza, and RSV testing negative. Urinalysis negative for signs of infection. Chest x-ray reveals no acute process. CT scan of the brain obtained also revealing no acute findings. Patient's urgent concern was the headache in the back right side of her head. Advised that the cause of this is not entirely clear. Blood pressure was well- controlled in the emergency department. She declined any pain medication and was only agreeable to IV fluids and Antivert. She was very concerned about tick bites due to being outside and inquired about them contributing to her symptoms. I did not see any rashes or any ticks on the patient. Lyme antibody titer was ordered, advised that this is a send out test and needs to be followed up on by her PCP, it is not something I can check on. She expresses understanding. Advised that she can try taking Tylenol if she would like for management of the headache. Otherwise advise close follow-up with her primary care provider. Case discussed with ED attending Dr. Velasco. Return precautions reviewed in depth, the patient is instructed to return to the emergency department with any new, worsening, or concerning symptoms. Patient verbalized understanding. Undiagnosed new problem with uncertain prognosis? @ -None Drug Therapy requiring intensive monitoring for toxicity (Heparin, Nitro, Insulin, Cardizem)? @ -None Were any procedures done? @ -None Diagnosis/symptom? @ -Headache Acute, or Chronic, or Acute on Chronic? @ -Acute Uncomplicated (without systemic symptoms) or Complicated (systemic symptoms)? @ -Uncomplicated Side effects of treatment? @ -None Exacerbation, Progression, or Severe Exacerbation] @ -Not applicable Poses a threat to life or bodily function? @ -No - Lab Data Result diagrams: 01/06/24 10:35 01/06/24 10:35 Lab Results 01/06/24 01/06/24 01/06/24 Range/Units 10:35 10:35 10:35 WBC 6.6 (3.8-10.6) k/uL RBC 5.19 (3.80-5.40) m/uL Hgb 16.1 H (11.4-16.0) gm/dL Hct 49.6 H (34.0-46.0) % MCV 95.5 (80.0-100.0) fL MCH 31.0 (25.0-35.0) pg MCHC 32.5 (31.0-37.0) g/dL RDW 13.4 (11.5-15.5) % Plt Count 295 (150-450) k/uL MPV 6.9 Neutrophils % 52 % Lymphocytes % 36 % Monocytes % 6 % Eosinophils % 3 % Basophils % 1 % Neutrophils # 3.5 (1.3-7.7) k/uL Lymphocytes # 2.4 (1.0-4.8) k/uL Monocytes # 0.4 (0-1.0) k/uL Eosinophils # 0.2 (0-0.7) k/uL Basophils # 0.1 (0-0.2) k/uL PT 11.2 (10.0-12.5) sec INR 1.0 (<1.2) Sodium (137-145) mmol/L Potassium (3.5-5.1) mmol/L Chloride (98-107) mmol/L Carbon Dioxide (22-30) mmol/L Anion Gap mmol/L BUN (7-17) mg/dL Creatinine (0.52-1.04) mg/dL Est GFR (CKD-EPI)AfAm (>60 ml/min/1.73 sqM) Est GFR (CKD-EPI)NonAf (>60 ml/min/1.73 sqM) Glucose (74-99) mg/dL Plasma Lactic Acid Soham (0.7-2.0) mmol/L Calcium (8.4-10.2) mg/dL Total Bilirubin (0.2-1.3) mg/dL AST (14-36) U/L ALT (4-34) U/L Alkaline Phosphatase (38-126) U/L Troponin I (0.000-0.034) ng/mL Total Protein (6.3-8.2) g/dL Albumin (3.5-5.0) g/dL Urine Color Colorless Urine Appearance Clear (Clear) Urine pH 6.0 (5.0-8.0) Ur Specific [place] 1.014 (1.001-1.035) Urine Protein Negative (Negative) Urine Glucose (UA) Negative (Negative) Urine Ketones Negative (Negative) Urine Blood Negative (Negative) Urine Nitrite Negative (Negative) Urine Bilirubin Negative (Negative) Urine Urobilinogen <2.0 (<2.0) mg/dL Ur Leukocyte Esterase Negative (Negative) Influenza Type A (PCR) (Not Detectd) Influenza Type B (PCR) (Not Detectd) RSV (PCR) (Not Detectd) SARS-CoV-2 (PCR) (Not Detectd) 01/06/24 01/06/24 01/06/24 Range/Units 10:35 10:35 10:35 WBC (3.8-10.6) k/uL RBC (3.80-5.40) m/uL Hgb (11.4-16.0) gm/dL Hct (34.0-46.0) % MCV (80.0-100.0) fL MCH (25.0-35.0) pg MCHC (31.0-37.0) g/dL RDW (11.5-15.5) % Plt Count (150-450) k/uL MPV Neutrophils % % Lymphocytes % % Monocytes % % Eosinophils % % Basophils % % Neutrophils # (1.3-7.7) k/uL Lymphocytes # (1.0-4.8) k/uL Monocytes # (0-1.0) k/uL Eosinophils # (0-0.7) k/uL Basophils # (0-0.2) k/uL PT (10.0-12.5) sec INR (<1.2) Sodium 139 (137-145) mmol/L Potassium 4.6 (3.5-5.1) mmol/L Chloride 107 (98-107) mmol/L Carbon Dioxide 26 (22-30) mmol/L Anion Gap 6 mmol/L BUN 17 (7-17) mg/dL Creatinine 0.69 (0.52-1.04) mg/dL Est GFR (CKD-EPI)AfAm >90 (>60 ml/min/1.73 sqM) Est GFR (CKD-EPI)NonAf 82 (>60 ml/min/1.73 sqM) Glucose 90 (74-99) mg/dL Plasma Lactic Acid Soham 1.1 (0.7-2.0) mmol/L Calcium 9.9 (8.4-10.2) mg/dL Total Bilirubin 0.5 (0.2-1.3) mg/dL AST 24 (14-36) U/L ALT 23 (4-34) U/L Alkaline Phosphatase 95 (38-126) U/L Troponin I <0.012 (0.000-0.034) ng/mL Total Protein 6.8 (6.3-8.2) g/dL Albumin 4.2 (3.5-5.0) g/dL Urine Color Urine Appearance (Clear) Urine pH (5.0-8.0) Ur Specific [place] (1.001-1.035) Urine Protein (Negative) Urine Glucose (UA) (Negative) Urine Ketones (Negative) Urine Blood (Negative) Urine Nitrite (Negative) Urine Bilirubin (Negative) Urine Urobilinogen (<2.0) mg/dL Ur Leukocyte Esterase (Negative) Influenza Type A (PCR) (Not Detectd) Influenza Type B (PCR) (Not Detectd) RSV (PCR) (Not Detectd) SARS-CoV-2 (PCR) (Not Detectd) 01/06/24 Range/Units 10:35 WBC (3.8-10.6) k/uL RBC (3.80-5.40) m/uL Hgb (11.4-16.0) gm/dL Hct (34.0-46.0) % MCV (80.0-100.0) fL MCH (25.0-35.0) pg MCHC (31.0-37.0) g/dL RDW (11.5-15.5) % Plt Count (150-450) k/uL MPV Neutrophils % % Lymphocytes % % Monocytes % % Eosinophils % % Basophils % % Neutrophils # (1.3-7.7) k/uL Lymphocytes # (1.0-4.8) k/uL Monocytes # (0-1.0) k/uL Eosinophils # (0-0.7) k/uL Basophils # (0-0.2) k/uL PT (10.0-12.5) sec INR (<1.2) Sodium (137-145) mmol/L Potassium (3.5-5.1) mmol/L Chloride (98-107) mmol/L Carbon Dioxide (22-30) mmol/L Anion Gap mmol/L BUN (7-17) mg/dL Creatinine (0.52-1.04) mg/dL Est GFR (CKD-EPI)AfAm (>60 ml/min/1.73 sqM) Est GFR (CKD-EPI)NonAf (>60 ml/min/1.73 sqM) Glucose (74-99) mg/dL Plasma Lactic Acid Soham (0.7-2.0) mmol/L Calcium (8.4-10.2) mg/dL Total Bilirubin (0.2-1.3) mg/dL AST (14-36) U/L ALT (4-34) U/L Alkaline Phosphatase (38-126) U/L Troponin I (0.000-0.034) ng/mL Total Protein (6.3-8.2) g/dL Albumin (3.5-5.0) g/dL Urine Color Urine Appearance (Clear) Urine pH (5.0-8.0) Ur Specific [place] (1.001-1.035) Urine Protein (Negative) Urine Glucose (UA) (Negative) Urine Ketones (Negative) Urine Blood (Negative) Urine Nitrite (Negative) Urine Bilirubin (Negative) Urine Urobilinogen (<2.0) mg/dL Ur Leukocyte Esterase (Negative) Influenza Type A (PCR) Not Detected (Not Detectd) Influenza Type B (PCR) Not Detected (Not Detectd) RSV (PCR) Not Detected (Not Detectd) SARS-CoV-2 (PCR) Not Detected (Not Detectd) - Radiology Data Radiology results: report reviewed, image reviewed Disposition Clinical Impression: Headache, Hypertension Disposition: HOME SELF-CARE Instructions (If sedation given, give patient instructions): Acute Headache (ED) Additional Instructions: Return to the emergency department with any new, worsening, or concerning symptoms. Follow up with your primary care provider in 1-2 days. Is patient prescribed a controlled substance at d/c from ED?: No Referrals: Lawrence Marinelli DO [Primary Care Provider] - 1-2 days Time of Disposition: 13:50
[2024-01-06] MEDS: SODIUM CHLORIDE 0.9% 1,000 ML IV STA (11:03)
[2024-01-06 11:12] LABS: Basophils # (A) 0.1 k/uL (0-0.2); Basophils % (A) 1 %; Eosinophils # (A) 0.2 k/uL (0-0.7); Eosinophils % (A) 3 %; HCT 49.6 % (34.0-46.0); HGB 16.1 gm/dL (11.4-16.0); Lymphocytes # (A) 2.4 k/uL (1.0-4.8); Lymphocytes % (A) 36 %; MCHC 32.5 g/dL (31.0-37.0); MCV 95.5 fL (80.0-100.0); Mean Platelet Volume 6.9; Monocytes # (A) 0.4 k/uL (0-1.0); Monocytes % (A) 6 %; Neutrophils # (A) 3.5 k/uL (1.3-7.7); Neutrophils % (A) 52 %; Platelet Count 295 k/uL (150-450); RBC 5.19 m/uL (3.80-5.40); RDW 13.4 % (11.5-15.5); WBC 6.6 k/uL (3.8-10.6)
[2024-01-06 11:44] LABS: Prothrombin Time 11.2 sec (10.0-12.5)
--- NOTE | 2024-01-06 11:45 | XR ---
EXAMINATION TYPE: XR chest 2V DATE OF EXAM: 01/06/2024 COMPARISON: NONE TECHNIQUE: PA and lateral views submitted. HISTORY: Dizziness FINDINGS: The lungs are clear and there is no pneumothorax, pleural effusion, or focal pneumonia. Heart size normal and no overt failure. Osseous structures demonstrate hypertrophic and degenerative changes of the spine. AC joint arthropathy with diffuse osteopenia. IMPRESSION: 1. No acute process.
[2024-01-06 11:47] LABS: Appearance,Urine Clear (Clear); Bilirubin,Urine Negative (Negative); Blood,Urine Negative (Negative); Color,Urine Colorless; Glucose,Urine (UA) Negative (Negative); Ketones,Urine Negative (Negative); Leukocyte Esterase,Urine Negative (Negative); Nitrite,Urine Negative (Negative); Protein,Urine Negative (Negative); Specific Gravity,Urine 1.014 (1.001-1.035); Urobilinogen,Urine <2.0 mg/dL (<2.0)
--- NOTE | 2024-01-06 11:55 | CT ---
EXAMINATION TYPE: CT brain wo con CT DLP: 1139.4 mGycm, Automated exposure control for dose reduction was used. DATE OF EXAM: 01/06/2024 11:40 AM COMPARISON: None. CLINICAL INDICATION:Female, 83 years old with history of Headache, headache and dizziness TECHNIQUE: Brain: Multiple axial CT images of the brain were obtained without IV contrast. . Coronal and sagitta l reformats reviewed. FINDINGS: Brain: Extra-axial spaces: No abnormal extra-axial fluid collections. Ventricular system: Within normal limits Cerebral parenchyma: Mild cerebral volume loss. No acute intraparenchymal hemorrhage or mass effect. The pearl-white junction is well differentiated. Scattered hypoattenuating areas are seen within the periventricular white matter. Cerebellum: Low-lying cerebellar tonsils. Mass effect: No evidence of midline shift. Intracranial vasculature: Atherosclerotic calcifications of the intracranial vessels. Soft tissues: Normal. Calvarium/osseous structures: No depressed skull fracture. Paranasal sinuses and mastoid air cells: Mild mucosal thickening of the left maxillary sinus inferior ly. The mastoid air cells are clear. Visualized orbits: Orbital contents are intact. IMPRESSION: 1. No acute intracranial process. 2. Nonspecific white matter changes, likely secondary to chronic small vessel ischemic disease. 3. Low lying cerebellar tonsils.
[2024-01-06 12:00] LABS: ALT 23 U/L (4-34); AST 24 U/L (14-36); African American GFR (CKD) >90 (>60 ml/min/1.73 sqM); Albumin 4.2 g/dL (3.5-5.0); Alkaline Phosphatase 95 U/L (38-126); Anion Gap 6 mmol/L; Blood Urea Nitrogen 17 mg/dL (7-17); Calcium 9.9 mg/dL (8.4-10.2); Carbon Dioxide 26 mmol/L (22-30); Chloride 107 mmol/L (98-107); Glucose 90 mg/dL (74-99); Non-African American GFR(CKD) 82 (>60 ml/min/1.73 sqM); Potassium 4.6 mmol/L (3.5-5.1); Sodium 139 mmol/L (137-145); Total Bilirubin 0.5 mg/dL (0.2-1.3); Total Protein 6.8 g/dL (6.3-8.2)
[2024-01-06] MEDS: KETOROLAC 15 MG/ML 1 ML VIAL IVP STA ×2 (12:33→12:47)
[2024-01-06] MEDS: MECLIZINE 12.5 MG TAB PO STA (12:39)
[2024-01-06] MEDS: ONDANSETRON 4 MG/2 ML VIAL IVP STA (12:46)
[2024-01-06] MEDS: DEXAMETHASONE SOD PHOSPHATE 10 MG/ML 1 ML VIAL IVP STA (12:47)
[2024-01-06] MEDS: ACETAMINOPHEN TAB 500 MG TAB PO STA (12:47)
[2024-01-06 14:24] VITALS: BP 137/68; RESP 18; TEMP 97.6
== END 2024-01-06 14:34 | disposition home or self-care (01) ==
LOC: EC 09:28
DX: R51.9 Headache, unspecified (principal); R00.1 Bradycardia, unspecified; I10 Essential (primary) hypertension; Z11.52 Encounter for screening for COVID-19
CPT/HCPCS: 36415; 70450; 71046; 80053; 81003; 83605; 84484; 85025; 85610; 86618; 87636; 93005; 96360; 96361; 99284